=== PATIENT | female | born 1950 | race Caucasian/White ===

== ENCOUNTER 2021-03-03 07:10 | Emergency (ER) | payer MEDICARE, SELFPAY ==
--- NOTE | ~2021-03-03 | XR_ITS ---
XR chest 2V 03/03/2021 07:35 Indication: Shortness of breath. Chest pain. Procedure: 2 view chest Comparison: No prior studies for comparison. Findings: Heart size normal. No focal air space disease, pulmonary edema, pleural effusion or suspect ed pneumothorax. There is left shoulder arthroplasty. There are cholecystectomy clips. Impression: 1: No acute cardiopulmonary disease. Reviewed, dictated and finalized at location A. Impression: 1: No acute cardiopulmonary disease.
[2021-03-03 07:04] VITALS: BP 162/75; PULSE 77; RESP 18; TEMP 36.1; O2SAT 96
--- NOTE | 2021-03-03 07:11 | ECG_ITS ---
Measurements Intervals [place] Rate: 71 P: -7 MS: 149 QRS: 11 QRSD: 94 T: 69 QT: 404 QTc: 439 Interpretive Statements SINUS RHYTHM BORDERLINE ST-T WAVE ABNORMALITY- ANT/HIGH LAT LEADS BASELINE ARTIFACT- I, II, III, AVR, AVF, V3-V6 BORDERLINE ECG Electronically Signed On 03-03-2021 8:04:46 CDT by Demetrio Smith D.O.
[2021-03-03 07:12] VITALS: PULSE 75
[2021-03-03 07:34] LABS: Basophils Absolute Auto 0.1 K/mm3 (0.0-0.1); Basophils Percent Auto 0.7 % (0.2-1.2); Eosinophils Absolute Auto 0.2 K/mm3 (0-0.3); Eosinophils Percent Auto 3.3 % (0-4.4); Hematocrit 43.8 % (37.0-47.0); Hemoglobin 14.7 g/dL (12.0-15.0); Immature Granulocyte Absolute 0.02 K/mm3 (0.00-0.031); Immature Granulocyte Percent A 0.3 % (0-0.5); Lymphocytes Percent Auto 20.1 % (18.3-44.2); Mean Corpuscular HGB Conc 33.6 g/dl (32-36); Mean Corpuscular Hemoglobin 32.8 pg (26-34); Mean Corpuscular Volume 97.8 fl (80-100); Mean Platelet Volume 9.6 fl (7.4-10.4); Monocytes Absolute Auto 0.8 K/mm3 (0.1-0.6); Monocytes Percent Auto 11.3 % (2.6-8.5); Neutrophils Absolute Auto 4.5 K/mm3 (1.3-6.7); Neutrophils Percent Auto 64.3 % (45.5-73.1); Platelet Count Result 210 k/mm3 (150-375); Red Blood Count 4.48 M/mm3 (4.2-5.4); Red Cell Distribution Width 12.3 % (11.5-14.5)
[2021-03-03 07:43] LABS: Anion Gap 11 mmol/L (8-16); Blood Urea Nitrogen 13 mg/dL (7-17); Calcium 9.1 mg/dL (8.4-10.2); Carbon Dioxide 22 mmol/L (22-30); Chloride 103 mmol/L (98-107); Estimated CRCL calculation 36 ml/min; Estimated Glomerular Filt Rate 44; Glucose 109 mg/dL (65-110); Potassium 4.1 mmol/L (3.4-5.0); Sodium 136 mmol/L (137-145)
[2021-03-03 07:44] LABS: INR 0.9; Partial Thromboplastin Time 28.2 SECONDS (22.3-36.8); Prothrombin Time 12.4 Seconds (11.1-14.7)
--- NOTE | 2021-03-03 07:44 | ED.CHESTPAIN ---
HPI - Chest Pain General Chief Complaint: Chest Pain Stated Complaint: CP Source: patient and EMS Mode of arrival: EMS Limitations: no limitations History of Present Illness HPI narrative: Patient is a 63 yo female with a history of hyperlipidemia, hypothyroidism, hypertension, acid reflux, who presents for evaluation of neck pain with radiation into her chest. Patient states this dull, aching pain awaken her overnight. She feels on the left side of her neck with radiation to her chest. No radiation to the back or shoulders. No associated shortness of breath. Pain is minimal in nature currently, rated 1/10 in severity. No ripping or tearing sensation to the flank. No associated diaphoresis, nausea or vomiting. Patient initially was seen at the fire department was referred to this facility for further evaluation based on her symptoms. Patient does not smoke. Patient denies recent stress test. Per chart review, she does have a history of cardiac catheterization in the last 5 years. Patient is vaccinated for Covid. No history of Covid infection. No recent long car or air travel. Denies fever, chills, loss of sense of taste or smell. She does report a feeling as if she has some phlegm in her throat. Denies any difficulty breathing. Related Data Allergies Allergy/AdvReac Type Severity Reaction Status Date / Time No Known Allergies Allergy Unverified 05/04/16 13:13 Review of Systems Review of Systems: CONSTITUTIONAL: Denies fever, chills, or sweats. EYES: Denies visual changes, redness, or discharge. ENT: Denies rhinorrhea, congestion, sore throat, or otalgia. CARDIOVASCULAR: Reports mild chest pressure, denies palpitations or edema RESPIRATORY: Denies cough or dyspnea. GASTROINTESTINAL: Denies abdominal pain, nausea, vomiting, or diarrhea. GENITOURINARY: Denies dysuria or hematuria. SKIN: Denies rash or itching. MUSCULOSKELETAL: Denies back pain, joint pain, or myalgia. NEUROLOGIC: Denies headache, numbness, or weakness. [facility] Social History Social History Smoking status: Former smoker Alcohol intake: never Exam Narrative: GENERAL: Awake, alert, conversant HEAD: Normocephalic, atraumatic. EYES: PERRLA and EOMI. ENT: Nares clear, no rhinorrhea or epistaxis. Mucous membranes moist. Oropharynx is clear NECK: Supple. No cervical lymphadenopathy. CHEST: No respiratory distress, breathing even and non labored, mild chest wall tenderness on exam HEART: Regular rate, sinus rhythm ABDOMEN:Non distended, non tender EXTREMITIES: Normal range of motion. No edema. SKIN: Warm, dry, no rash. NEURO:No focal deficits. Alert and oriented x3 Course Vital Signs Vital signs: Vital Signs Temperature 36.1 C L 03/03/21 07:04 Pulse Rate 77 03/03/21 07:04 Respiratory Rate 18 03/03/21 07:04 Blood Pressure 162/75 H 03/03/21 07:04 Pulse Oximetry 96 03/03/21 07:04 Temperature 36.1 C L 03/03/21 07:04 Pulse Rate 75 03/03/21 07:12 Respiratory Rate 18 03/03/21 07:04 Blood Pressure 162/75 H 03/03/21 07:04 Pulse Oximetry 96 03/03/21 07:04 MDM - Chest Pain Differential Diagnosis Differential diagnosis: Likely stable angina, unstable angina pectoris, atypical chest pain, st elevation myocardial infarction, costochondritis and chest pain Medical Records Data Attestation: I reviewed the patient's medical records. Lab Data Attestation: I reviewed the patient's lab results. Result diagrams: 03/03/21 07:23 03/03/21 07:23 Labs: Lab Results 03/03/21 03/03/21 03/03/21 Range/Units 07:23 07:23 07:23 WBC Pending RBC Pending Hgb Pending Hct Pending MCV Pending MCH Pending MCHC Pending RDW Pending Plt Count Pending MPV Pending Immature Gran % (Auto) Pending Neut % (Auto) Pending Lymph % (Auto) Pending [place] % (Auto) Pending Eos % (Auto) Pending
[2021-03-03 07:55] LABS: Troponin I < 0.012 ng/mL (0.000-0.034)
[2021-03-03 09:39] VITALS: BP 133/67; PULSE 65; RESP 19; O2SAT 94
[2021-03-03 10:53] LABS: Troponin I < 0.012 ng/mL (0.000-0.034)
== END 2021-03-03 12:21 | disposition home or self-care (01) ==
PROVIDERS: Emergency Provider Emergency Medicine; PCP Nurse Practitioner Adult Health
DX: R07.89 Other chest pain (principal); E78.5 Hyperlipidemia, unspecified; E03.9 Hypothyroidism, unspecified; I10 Essential (primary) hypertension; Z87.891 Personal history of nicotine dependence; R94.31 Abnormal electrocardiogram [ECG] [EKG]
CPT/HCPCS: 36415; 71046; 80048; 84484; 85025; 85610; 85730; 93005; 99284

== ENCOUNTER → 2021-03-10 02:55 | Outpatient (CLI) | payer MEDICARE, SELFPAY ==
[2021-03-10 20:01] LABS: SARS-CoV-2 RNA PCR Negative
== END ==
PROVIDERS: PCP Nurse Practitioner Adult Health; Visit Provider Nurse Practitioner Adult Health
DX: R51.9 Headache, unspecified (principal); Z20.822 Contact with and (suspected) exposure to COVID-19
CPT/HCPCS: C9803; U0003; U0005

== ENCOUNTER 2021-03-24 15:06 | Inpatient (IN) | payer MEDICARE, SELFPAY ==
[2021-03-24] VITALS (20 sets, daily range): BP systolic 102–136; BP diastolic 61–91; PULSE 86–98; RESP 17–33; TEMP 36.4–37.4; O2SAT 94–100; BMI 26.8
--- NOTE | ~2021-03-24 | XR_ITS ---
EXAMINATION: XR chest 1V portable DATE: 03/28/2021 05:57 INDICATION: Pericardial effusion TECHNIQUE: frontal view of the chest was obtained. COMPARISON: Chest radiograph and CT dated 03/24/2021 FINDINGS: Persistent elevation of the left hemidiaphragm. Interval improvement in mild opacities in the left lo wer lung zone. Opacities in the right lower lung zone have resolved. No pneumothorax or definitive pl eural effusion. Borderline cardiac silhouette which appears slightly decreased in size since prior st udy. Reverse left total shoulder arthroplasty. IMPRESSION: 1. Resolution of prior right-sided and decrease in left-sided basilar opacities which could represent improving pulmonary edema, atelectasis or pneumonia. 2. Interval improvement in prior enlargement of the cardiac silhouette which could represent decrease in a moderate-sized pericardial effusion as evident on prior CT. Reviewed, dictated and finalized at location A. IMPRESSION: 1. Resolution of prior right-sided and decrease in left-sided basilar opacities which could represent improving pulmonary edema, atelectasis or pneumonia. 2. Interval improvement in prior enlargement of the cardiac silhouette which co uld represent decrease in a moderate-sized pericardial effusion as evident on p rior CT.
--- NOTE | ~2021-03-24 | CT_ITS ---
EXAMINATION: CTA chest PE protocol DATE: 03/24/2021 20:54 CDT INDICATION: Chest pain worsening when laying down. TECHNIQUE: Computed tomographic angiography (CTA) of the chest was performed with 100 mL Omnipaque-35 0 intravenous contrast. The dose-length product was 380.03 mGy-cm. Maximum intensity projection 3D-re constructions of the aorta and other arteries were constructed by the technologist on a separate work station. Automated exposure control and iterative reconstruction technique were employed. COMPARISON: Chest dated 03/24/2020. FINDINGS: Study technically adequate without evidence for pulmonary embolism. Evaluation of lower lob e segmental and subsegmental pulmonary arteries limited by motion. Moderate pericardial effusion. Trace left pleural effusion. Predominantly bilateral lower lobe airspa ce disease, compatible with pneumonia. No thoracic lymphadenopathy. Small hiatal hernia. No evidence for aortic aneurysm or dissection. Status post cholecystectomy. No pneumothorax. No endobronchial les ions. IMPRESSION: 1. No evidence for pulmonary embolism. 2: Moderate pericardial effusion. 3: Bilateral lower lobe airspace disease, compatible with pneumonia. 4: Trace left pleural effusion. Reviewed, dictated and finalized at location A.
--- NOTE | ~2021-03-24 | XR_ITS ---
XR chest 1V portable 03/24/2021 15:40 Indication: Chest pain and dyspnea. Procedure: AP portable chest Comparison: 03/03/2021 Findings: Cardiomegaly. Bibasilar airspace disease, consistent with pneumonia. No significant effusio n or pneumothorax. There is a left shoulder arthroplasty in expected position. No acute osseous abnor mality. Impression: 1: Bilateral perihilar and basilar airspace disease, compatible with pneumonia. Reviewed, dictated and finalized at location A. Impression: 1: Bilateral perihilar and basilar airspace disease, compatible with pneumonia.
--- NOTE | ~2021-03-24 | NM_ITS ---
NM pulmonary perfusion INDICATION: Shortness of breath. Elevated d-dimer. TECHNIQUE: 3.3 mCi Tc 99m MAA was injected intravenously for perfusion images. Multiple images were then acquired. COMPARISON: Chest x-ray dated 03/24/2021 FINDINGS: The comparison chest radiograph demonstrates bibasilar airspace disease. Small perfusion de fects are identified in the lower lobes bilaterally. IMPRESSION: 1: Small bilateral perfusion defects in the lower lobes. Reviewed, dictated and finalized at location A.
--- NOTE | 2021-03-24 15:16 | ECG_ITS ---
Measurements Intervals [place] Rate: 86 P: -9 MO: 146 QRS: -9 QRSD: 82 T: 75 QT: 349 QTc: 418 Interpretive Statements SINUS RHYTHM LOW QRS VOLTAGE IN LIMB LEADS BORDERLINE T WAVE ABNORMALITY- ANTTEROLAT/HIGH LAT LEADS BASELINE ARTIFACT- I, III, AVL, AVF, V1-V4 BORDERLINE ECG Electronically Signed On 03-24-2021 15:55:45 CDT by Demetrio Smith D.O.
[2021-03-24] MEDS: ASPIRIN 81 MG CHEWABLE TABLET 324 MG PO (15:34)
[2021-03-24 15:47] LABS: Basophils Percent Auto 0.1 % (0.2-1.2); Eosinophils Percent Auto 0.1 % (0-4.4); Hematocrit 41.9 % (37.0-47.0); Immature Granulocyte Absolute 0.06 K/mm3 (0.00-0.031); Immature Granulocyte Percent A 0.4 % (0-0.5); Lymphocytes Absolute Auto 0.86 K/mm3 (0.9-3.2); Lymphocytes Percent Auto 6.4 % (18.3-44.2); Mean Corpuscular HGB Conc 33.4 g/dl (32-36); Mean Corpuscular Hemoglobin 32.8 pg (26-34); Mean Corpuscular Volume 98.1 fl (80-100); Mean Platelet Volume 9.6 fl (7.4-10.4); Monocytes Absolute Auto 1.1 K/mm3 (0.1-0.6); Monocytes Percent Auto 8.1 % (2.6-8.5); Neutrophils Absolute Auto 11.4 K/mm3 (1.3-6.7); Neutrophils Percent Auto 84.9 % (45.5-73.1); Platelet Count Result 291 k/mm3 (150-375); Red Blood Count 4.27 M/mm3 (4.2-5.4); Red Cell Distribution Width 12.4 % (11.5-14.5); White Blood Count 13.4 K/mm3 (4.5-10.0)
[2021-03-24 15:58] LABS: INR 1.1; Partial Thromboplastin Time 30.7 SECONDS (22.3-36.8); Prothrombin Time 13.9 Seconds (11.1-14.7)
[2021-03-24 16:00] LABS: Anion Gap 10 mmol/L (8-16); Blood Urea Nitrogen 14 mg/dL (7-17); Calcium 8.9 mg/dL (8.4-10.2); Carbon Dioxide 22 mmol/L (22-30); Chloride 102 mmol/L (98-107); Estimated CRCL calculation 36 ml/min; Estimated Glomerular Filt Rate 44; Glucose 170 mg/dL (65-110); Potassium 4.3 mmol/L (3.4-5.0); Sodium 134 mmol/L (137-145)
[2021-03-24 16:12] LABS: Troponin I < 0.012 ng/mL (0.000-0.034)
[2021-03-24 16:27] LABS: D Dimer 1.59 ug/mL (<0.48)
[2021-03-24 18:59] LABS: Troponin I < 0.012 ng/mL (0.000-0.034)
--- NOTE | 2021-03-24 19:22 | ED.CHESTPAIN ---
HPI - Chest Pain General Chief Complaint: Chest Pain Stated Complaint: CP off and on x 1month Time Seen by Provider: 03/24/21 15:11 Source: patient Mode of arrival: ambulatory Limitations: no limitations History of Present Illness HPI narrative: Patient presents with chief complaint of sharp left-sided chest pain radiating to her left side of her neck and shoulder that have been intermittent over the past month. Patient states that she has had other work-ups for the chest pain but her results come back normal. 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 Patient states that last night the pain returned and she also noticed that the pain increased with breathing especially inspiration. Patient reports being tested for Covid. March 08 but the results were negative. Related Data Allergies Allergy/AdvReac Type Severity Reaction Status Date / Time No Known Allergies Allergy Unverified 05/04/16 13:13 Review of Systems Review of Systems: CONSTITUTIONAL: Denies fever, chills, or sweats. EYES: Denies visual changes, redness, or discharge. ENT: Denies rhinorrhea, congestion, sore throat, or otalgia. CARDIOVASCULAR: Reports left-sided chest pain denies palpitations, or edema. RESPIRATORY: Denies cough or dyspnea. GASTROINTESTINAL: Denies abdominal pain, nausea, vomiting, or diarrhea. GENITOURINARY: Denies dysuria or hematuria. SKIN: Denies rash or itching. MUSCULOSKELETAL: Denies back pain, joint pain, or myalgia. NEUROLOGIC: Denies headache, numbness, dizziness, or weakness. PSYCHIATRIC: Denies anxiety or depression. [facility] Social History Social History Smoking status: Former smoker Alcohol intake: never Gender identity (if verbalized by the patient): Female Exam Narrative: GENERAL: Well-appearing, well-nourished, and in no acute distress. HEAD: Normocephalic, atraumatic. EYES: PERRLA and EOMI. ENT: Nares clear, no rhinorrhea or epistaxis. Mucous membranes moist. Oropharynx without tonsillar hypertrophy exudate or other lesions. Bilateral TMs pearly martinez nonbulging NECK: Supple. No adenopathy or masses. Range of motion intact. CHEST: Clear to auscultation. No respiratory distress. No wheezes rales or rhonchi HEART: Regular rate and rhythm. ABDOMEN: Soft, nontender, nondistended, normal active bowel sounds. EXTREMITIES: Normal range of motion. No edema to the lower extremities. SKIN: Warm, dry, no rash. NEURO: No focal deficits. Alert and oriented x3. PSYCH: Normal mood and affect. Course Vital Signs Vital signs: Vital Signs Temperature 97.6 F 03/24/21 15:14 Pulse Rate 86 03/24/21 15:14 Respiratory Rate 24 H 03/24/21 15:14 Blood Pressure 136/84 03/24/21 15:14 Pulse Oximetry 97 03/24/21 15:14 Temperature 97.6 F 03/24/21 15:14 Pulse Rate 90 03/24/21 21:18 Respiratory Rate 19 03/24/21 21:15 Blood Pressure 112/61 03/24/21 21:15 Pulse Oximetry 94 03/24/21 21:15 MDM - Chest Pain MDM Narrative Medical decision making narrative: Patient is not hypoxic. Patient is not tachycardic. Patient's blood pressure is stable. Patient having questionable Covid symptoms Patient which she declined because she does not want her daughter staff to leave the room. Patient's VQ scan showed decreased perfusion at the bases bilaterally. This does not rule out a PE so CT PE was performed which show moderately enlarged pericardia. Patient denies a history of known heart failure/cardiomegaly. Patient will be admitted and is accepted for admission [facility] with telemetry by Dr. Gordon. Patient will have echo in the morning. Patient now agrees to Covid testing. Differential Diagnosis Differential diagnosis: Likely fracture of rib, pneumothorax, stable angina, unstable angina pectoris, atypical chest pain, st elevation myocardial infarction, costochondritis, chest pain and biliary colic Lab Data Result diagrams:
--- NOTE | 2021-03-24 20:17 | PC.NURSE ---
Initial contact with patient. Pt resting on stretcher, talking on phone. VSS. Daughter at bedside states that she wants the patient tested for COVID because she has been sick for the past 3 weeks, and is wondering if we test everyone . Explained that the tests are done at the discretion of the physician and with presented symptoms. Pt given morphine for c/o upper chest and upper back pain.
[2021-03-24] MEDS: MORPHINE SULFATE (*CRX) 2 MG/ML INJ IV PUSH (20:21)
--- NOTE | 2021-03-24 21:15 | PC.NURSE ---
Pt resting with eyes closed on stretcher. States her pain has not improved at all from the morphine. REUBEN Rudolph, made aware.
--- NOTE | 2021-03-24 21:45 | PC.NURSE ---
Daughter made aware that rapid covid swab is ordered and that she will have to leave the patient. States wants to delay the test at this time so that she can visit a little longer with her mother.
[2021-03-24 21:47] LABS: NT Pro B Type Natriuretic Pept 766 pg/mL (5-100)
[2021-03-24 21:50] LABS: Troponin I < 0.012 ng/mL (0.000-0.034)
--- NOTE | 2021-03-24 22:22 | PC.NURSE ---
Rapid covid swab collected and sent to lab. Daughter exits building per visitor policy. Awaiting room assignment. Pt denies needs at present.
[2021-03-24 22:48] LABS: EDCOVIDSCREEN Negative (Negative)
--- NOTE | 2021-03-24 22:50 | PC.NURSE ---
Bed assignment received. SBAR faxed and tubed.
--- NOTE | 2021-03-24 22:55 | PC.NURSE ---
Pt ambulatory to bathroom. Note increased shortness of breath after ambulating. Pt states continues to have midsternal and upper back pain. REUBEN Rudolph, made aware. VSS.
[2021-03-24] MEDS: MORPHINE SULFATE (*CRX) 2 MG/ML INJ (23:03)
--- NOTE | 2021-03-24 23:08 | PC.NURSE ---
Attempt to call report to floor, no answer.
--- NOTE | 2021-03-24 23:42 | PM.IMHP ---
H&P: HPI History of Present Illness Date/Time: 03/24/21 23:42 Chief Complaint: chest pain Narrative: Patient presents to the ED with recurrent chest pains since past month. c/o recently presented on March 03, 2021 with bilateral jaw pain that follows down to her chest sharp in quality and radiates to her back in between her scapula. She states the pain gets worse whenever she takes deep breaths. She came to the ED for evaluation and workup was negative with negative chest x-ray negative troponin and EKG. She was sent home following which she followed up with her primary care doctor. She had 2 another episodes since then after the 2nd episode she was given a steroid pack and amoxicillin which helped her pain. After she finished a course she had another episode which was not so bad and resolve on its own. This pain which started a day or 2 ago and has been more severe and hence came to the ER for evaluation. She describes the pain is is same way as she has been experiencing over the past month now. In the this time she is noted to have elevated WBC count and chest x-ray with bilateral lower pneumonia. She was swabbed again for COVID which came back negative which shows also no Forrest negative last month. Without pleuritic nature of chest pain a D-dimer was checked which was elevated and hence a V/Q scan was done which was not conclusive and see got a CTA done which showed no PE however was noted to have moderate pericardial effusion along with trace left-sided pleural effusion. With these findings he was admitted for further evaluation and management. She denies having any fever however she did had an episode of sweating at 1 time and chills but no recorded elevated temperature per patient. She also denies having any cough or runny nose or any upper respiratory infection symptoms. She also denies having exposed to COVID and has also been vaccinated in the past. Review of Systems Review of Systems: - CONSTITUTIONAL: Denies weight loss, fever and chills. - HEENT: Denies changes in vision and hearing - RESPIRATORY: reports SOB and denies cough. - CV: Denies palpitations and reports CP. - GI: Denies abdominal pain, nausea, vomiting and diarrhea. - : Denies dysuria and urinary frequency. - MSK: Denies myalgia and joint pain. - SKIN: Denies rash and pruritus. - NEUROLOGICAL: Denies headache and syncope. - PSYCHIATRIC: Denies recent changes in mood. Denies anxiety and depression. All systems reviewed & are unremarkable except as noted in HPI and below Constitutional: Constitutional: Reports fatigue and Reports weakness Neurologic: Reports weakness Endocrine: Endocrine: Reports fatigue PMFSH Social History Social History Smoking status: Former smoker Tobacco type: cigarettes Alcohol intake: never Substance use: never Gender identity (if verbalized by the patient): Female Spiritual care concerns: No Meds Home Medications and Allergies Home Medications Medication Instructions Recorded Confirmed Type aspirin [Adult Low Dose Aspirin] 81 mg PO DAILY 03/25/21 03/25/21 History atorvastatin 20 mg PO DAILY 03/25/21 03/25/21 History bupropion HCl 200 mg PO DAILY 03/25/21 03/25/21 History fluoxetine 40 mg PO DAILY 03/25/21 03/25/21 History levothyroxine 125 mcg PO DAILY 03/25/21 03/25/21 History losartan 50 mg PO DAILY 03/25/21 03/25/21 History metoprolol succinate 50 mg PO DAILY 03/25/21 03/25/21 History Allergies Allergy/AdvReac Type Severity Reaction Status Date / Time No Known Allergies Allergy Unverified 05/04/16 13:13 Vital Signs Vital Signs - 24 hr 03/24/21 15:14 03/24/21 17:28 03/24/21 20:06 Temperature 97.6 F Pulse Rate 86 88 89 Respiratory Rate 24 H 18 19 Blood Pressure 136/84 127/81 Pulse Oximetry 97 100 95 03/24/21 20:18 03/24/21 20:30 03/24/21 20:47 Temperature Pulse Rate 91 93 91 Respiratory Rate 25 H 24
[2021-03-25] VITALS (9 sets, daily range): BP systolic 93–105; BP diastolic 53–58; PULSE 71–99; RESP 16–20; TEMP 36.4–36.8; O2SAT 90–91; BMI 26.8
[2021-03-25] MEDS: COLCHICINE 0.6 MG TABLET PO ×3 (01:46→20:26)
[2021-03-25] MEDS: INDOMETHACIN 25 MG CAPSULE PO ×4 (01:46→17:13)
[2021-03-25] MEDS: LEVOTHYROXINE SODIUM 125 MCG TABLET PO (05:21)
[2021-03-25 07:24] LABS: HIV 1/2 Ab P24 Ag Result Negative (Negative)
[2021-03-25 07:40] LABS: CRP 33.7 mg/dL (<1.0)
[2021-03-25 07:45] LABS: Hepatitis B Surface Antigen Negative (Negative)
[2021-03-25 07:50] LABS: HAV RESULT Negative (Negative); Hepatitis B Core IgM Result Negative (Negative)
[2021-03-25 08:02] LABS: Hepatitis C Virus Antibody Negative (Negative)
[2021-03-25 08:19] LABS: Erythrocyte Sedimentation Rate > 140 mm/hr (0-20)
[2021-03-25 08:28] LABS: SARS-CoV-2 IgG Reactive (NonReactive)
[2021-03-25] MEDS: METOPROLOL SUCCINATE EXT REL 50 MG TABCR PO (09:33)
[2021-03-25] MEDS: LOSARTAN POTASSIUM 50 MG TABLET PO (09:33)
[2021-03-25] MEDS: ASPIRIN 81 MG ENTERIC TABLET PO (09:34)
[2021-03-25] MEDS: ATORVASTATIN 20 MG TABLET PO (09:34)
[2021-03-25] MEDS: FLUoxetine HCL 20 MG CAPSULE 40 MG PO (09:34)
--- NOTE | 2021-03-25 10:45 | PM.IMPN ---
Progress Note: A&P Assessment and Plan (1) Atypical chest pain: Code(s): R07.89 - Other chest pain Status: Acute Assessment and Plan: Pt has negative troponins , CT chest shows moderate pericardial effusion and bilateral pneumonia. Pt is on IV rocephin and IV zithromax, [place] [id number] cont to monitor. (2) Acute pericardial effusion: Code(s): I30.9 - Acute pericarditis, unspecified Status: Acute Assessment and Plan: ESR is high colchicine is ordered indomethacin is ordered, CT shows moderate pericardial effusion, cardiology consulted. (3) Hyperlipidemia: Code(s): E78.5 - Hyperlipidemia, unspecified Status: Acute Assessment and Plan: Chronic history (4) Hypertension: Code(s): I10 - Essential (primary) hypertension Status: Acute Assessment and Plan: Bp stable is the hospital continue to monitor (5) Coronary artery disease: Code(s): I25.10 - Atherosclerotic heart disease of [place] coronary artery without angina pectoris Status: Acute Assessment and Plan: Chronic history of CAD Subjective Date/time seen: 03/25/21 10:45 Interval history: &1 year old presented with left sided chest pain radiating to her shoulder. Describes sharp pains and positional chest pains. So far troponin is negative. EKG with nonspecific ST-T changes no dynamic change compared to previous EKG. She does have history of coronary artery disease status, CXR shows LL Pneumonia and CT chest shows - moderate pericardial effusion. Pt complains of chest pain sharp in nature on both sides of her back, and mild SOB. Review of Systems Review of Systems: All systems reviewed & are unremarkable except as noted in HPI and below ROS unobtainable: Yes other (Chest pains sharp in nature and positional, sob mild ) Cardiovascular: Cardiovascular: Reports chest pain Respiratory: Respiratory: Reports chest congestion and Reports dyspnea (mild ) Gastrointestinal: Gastrointestinal: Denies no additional gastrointestinal complaints Neurologic: Reports system reviewed and no additional complaints, except as documented Psychiatric: Psychiatric: Denies no additional psychiatric complaints Exam Const: General: ill appearing and other (Mild distress with chest pains ) Nutritional Appearance: overweight Orientation/consciousness: oriented to person HENMT: Head: normal to inspection Resp: Effort & Inspection: no respiratory distress Auscultation: rhonchi (BIlateral ) and wheezes (Bilateral ) Cardio: Rate: regular rate Rhythm: regular rhythm GI: Inspection: normal to inspection GI Palp: No abdominal tenderness, No Guarding due to palpation present (GI) and No Hepatomegaly present Auscultation: normal bowel sounds Neuro: General: oriented to person Objective Data Vital Signs Vital Signs: Vital Signs - 24 hr 03/24/21 15:14 03/24/21 17:28 03/24/21 20:06 Temperature 36.4 C Pulse Rate 86 88 89 Respiratory Rate 24 H 18 19 Blood Pressure 136/84 127/81 Pulse Oximetry 97 100 95 03/24/21 20:18 03/24/21 20:30 03/24/21 20:47 Temperature Pulse Rate 91 93 91 Respiratory Rate 25 H 24 H 18 Blood Pressure 114/71 108/69 107/69 Pulse Oximetry 96 95 95 03/24/21 21:00 03/24/21 21:15 03/24/21 21:18 Temperature Pulse Rate 89 91 90 Respiratory Rate 24 H 19 Blood Pressure 102/62 112/61 Pulse Oximetry 95 94 03/24/21 21:30 03/24/21 21:31 03/24/21 21:45 Temperature Pulse Rate 98 96 Respiratory Rate 20 17 23 H Blood Pressure 111/69 113/91 H Pulse Oximetry 94 96 95 03/24/21 21:46 03/24/21 22:00 03/24/21 22:15 Temperature Pulse Rate 95 96 95 Respiratory Rate 21 H 19 18 Blood Pressure 111/64 109/73 Pulse Oximetry 95 94 94 03/24/21 22:16 03/24/21 22:30 03/24/21 22:53 Temperature Pulse Rate 95 92 98 Respiratory Rate 19 25 H 33 H Blood Pressure 111/71 132/68 Pulse Oximetry 94 94 98 03/24/21 23:34 03/24/21 23:53
[2021-03-25] MEDS: MORPHINE SULFATE (*CRX) 4 MG/ML INJ 2 MG IV PUSH (10:51)
[2021-03-25] MEDS: buPROPion HCL SR (12HR) 100 MG TABCR 200 MG PO (10:53)
--- NOTE | 2021-03-25 14:24 | PM.CNCAR ---
Assessment and Plan Assessment and plan (1) Acute pericardial effusion: Code(s): I30.9 - Acute pericarditis, unspecified Status: Acute Assessment and Plan: Moderate sized pericardial effusion noted on CT today. Follow up echocardiogram showed complex pericardial effusion as well as a thick pericardium. Patient is not exhibiting any hemodynamic compromise as a result of this effusion. Furthermore, it is a favorable fluid collection for pericardial tap. Start prednisone 40mg daily x 3 days taper prednisone to 20mg daily Patient to follow up with her button tufter as OP for remainder of steroid taper (2) Atypical chest pain: Code(s): R07.89 - Other chest pain Status: Acute Assessment and Plan: She has been experiencing atypical sounding chest pain for about a month and half. EKG does not have ST or T changes concerning for ischemia. Serial troponins are negative. Chest pain likely related to her pericarditis. Monitor for improvement of pain with treatment of her pericarditis. (3) Coronary artery disease: Code(s): I25.10 - Atherosclerotic heart disease of [place] coronary artery without angina pectoris Status: Acute Assessment and Plan: History of coronary artery disease with a prior stent placed in 2008 at [facility]. She has had some chest discomfort with exertion that she says has been increasing gradually over the past couple of years. Would not be unreasonable to undergo a stress test as an outpatient with her button tufter. No indication for ischemic workup during this admission as she does not have any evidence of ischemia by EKG or cardiac enzymes. Her chest pain is likely related to her pericarditis. History of Present Illness History of Present Illness Consult date/time: 03/25/21 14:24 Requesting physician: Rufus Gordon MD Consult reason: chest pain and Other (Pericardial effusion) Reason For Visit: Atypical Chest Pain w/pericardial effusion Narrative: This is a 70-year-old female I am seeing at the request of Dr. Gordon For the reason of chest pain as well as pericardial effusion noted on CT scan. This is a patient with a past medical history of coronary artery disease with a stent placed in 2008 at [facility], hypertension, hyperlipidemia, thyroid disease who has a complaint of intermittent chest pain that is been ongoing for about a month and a half. She says that she presented to the hospital at the end of February for the same reason at which time a cardiac workup was performed including EKG and cardiac enzymes neither of which were indicative of myocardial ischemia. She also tells me that she was prescribed 1 week of steroids and antibiotics for this same complaint which improved her symptoms but she noticed that immediately after stopping the antibiotic her chest pain returned. She describes her pain as sharp and rates it at an intensity of 10. The pain will sometimes originate in her jaw, travel down her neck, then to her chest. Aside from the steroids and antibiotics she denies any alleviating factors. She says that the pain will arise and last for about 1 day, subside for 1-2 days then return. She says that when she takes a deep breath in the pain is worse. She has noticed that she has to take breaks when mowing the grass due to chest discomfort. She also says that she has noticed some chest discomfort while walking. She has noticed this getting worse over the span of several years. she denies any nausea, vomiting, shortness of breath, orthopnea. She follows with a button tufter Dr. Gomez at [place]. Review of Systems Review of Systems: All systems reviewed & are unremarkable except as noted in HPI and below Constitutional: Constitutional: Denies fatigue, Denies lethargy and Denies weakness Eyes: Eyes: Denies change in vision ENT: Reports Normal hearing present Cardiovascular: Cardiovascular: Reports chest pain, Denies diaph
[2021-03-25 15:14] LABS: Free T4 Free Thyroxine Reflex 1.47 ng/dL (0.78-2.19)
[2021-03-25] MEDS: predniSONE 20 MG TABLET 40 MG PO (17:18)
[2021-03-25 18:44] LABS: Total Triiodothyronine (T3) 0.64 NG/ML (0.97-1.69)
--- NOTE | 2021-03-25 21:48 | ECHO_ITS ---
Patient Info Name: Anu Carranza Age: 70 years : 1950 Gender: Female Ht: 63 in Wt: 160 lbs BSA: 1.82 m2 HR: 78 bpm BP: 105 / 57 mmHg Heart Rhythm: Sinus Rhythm Technical Quality: Fair Exam Date: 03/25/2021 2:13 PM Exam Location: [facility] Patient Status: Inpatient Admit Date: 03/25/2021 Staff Ordering Physician: Jack Painting PA-C Dry Press Operator: Babs Holt RDCS Attending Provider: Rufus Gordon MD Referring Physician: Mert ANDERSON; Exam Type: CA echo doppler color flow Study Info Indications - PERICARDIAL EFFUSION Complete two-dimensional, color flow and Doppler transthoracic echocardiogram is performed. Summary 1. Complete two-dimensional, color flow and Doppler transthoracic echocardiogram is performed. 2. Left ventricular chamber dimension is normal. 3. Left ventricular systolic function is normal, estimated at 60-65%. 4. No significant valvular disease. 5. Complex pericardial effusion with small circumferential rim of fluid 1-1.3 cm in thickness. 6. The visceral pericardium is also very thick and complex in nature with soft tissue density. Left Ventricle Left ventricular chamber dimension is normal. Left ventricular systolic function is normal, estimated at 60-65%. The left ventricular diastolic function is normal. Right Ventricle Right ventricular chamber dimension is normal. Left Atria Left atrial chamber dimension is normal. Right Atria Right atrial chamber dimension is normal. Aortic Valve The aortic valve is trileaflet. There is mild aortic valve sclerosis. Pulmonic Valve The pulmonic valve is not well visualized. Mitral Valve The mitral valve has normal leaflets. Tricuspid Valve The tricuspid valve leaflets are normal. Pericardium/Pleural The pericardium appears thickened pericardium. There is small circumferential pericardial effusion. Aorta The aortic root size at the sinus of Valsalva is normal. Left Ventricular Outflow Tract Name Value Normal LVOT 2D LVOT Diameter 2.0 cm LVOT Doppler LVOT Peak Gradient 4 mmHg LVOT Mean Gradient 2 mmHg LVOT VTI 20 cm LVOT VTI/AV VTI Ratio 1.0 LVOT Stroke Volume 61 ml LVOT CO 4.7 l/min LVOT CI 2.6 l/min/m2 Pulmonic Valve Name Value Normal RVOT Doppler RVOT Peak Gradient 1 mmHg PV Doppler PV Peak Gradient 2 mmHg Mitral Valve Name Value Normal
[2021-03-26] VITALS (10 sets, daily range): BP systolic 107–123; BP diastolic 53–57; PULSE 63–75; RESP 18; TEMP 35.9–36.7; O2SAT 94–98
[2021-03-26] MEDS: MORPHINE SULFATE (*CRX) 4 MG/ML INJ 2 MG IV PUSH (02:55)
[2021-03-26] MEDS: LEVOTHYROXINE SODIUM 125 MCG TABLET PO (06:20)
[2021-03-26 07:06] LABS: Hematocrit 38.9 % (37.0-47.0); Mean Corpuscular HGB Conc 33.4 g/dl (32-36); Mean Corpuscular Hemoglobin 32.4 pg (26-34); Mean Platelet Volume 10.3 fl (7.4-10.4); Platelet Count Result 256 k/mm3 (150-375); Red Blood Count 4.01 M/mm3 (4.2-5.4); Red Cell Distribution Width 11.8 % (11.5-14.5); White Blood Count 11.4 K/mm3 (4.5-10.0)
[2021-03-26 07:12] LABS: Anion Gap 15 mmol/L (8-16); Blood Urea Nitrogen 17 mg/dL (7-17); Calcium 8.9 mg/dL (8.4-10.2); Carbon Dioxide 21 mmol/L (22-30); Chloride 102 mmol/L (98-107); Estimated CRCL calculation 30 ml/min; Estimated Glomerular Filt Rate 37; Glucose 124 mg/dL (65-110); Potassium 3.9 mmol/L (3.4-5.0); Sodium 138 mmol/L (137-145)
[2021-03-26] MEDS: INDOMETHACIN 25 MG CAPSULE PO ×3 (08:57→17:03)
[2021-03-26] MEDS: predniSONE 20 MG TABLET 40 MG PO (08:57)
[2021-03-26] MEDS: buPROPion HCL SR (12HR) 100 MG TABCR 200 MG PO (08:57)
[2021-03-26] MEDS: ATORVASTATIN 20 MG TABLET PO (08:57)
[2021-03-26] MEDS: METOPROLOL SUCCINATE EXT REL 50 MG TABCR PO (08:58)
[2021-03-26] MEDS: FLUoxetine HCL 20 MG CAPSULE 40 MG PO (08:58)
[2021-03-26] MEDS: ASPIRIN 81 MG ENTERIC TABLET PO (08:59)
[2021-03-26] MEDS: LOSARTAN POTASSIUM 50 MG TABLET PO (08:59)
[2021-03-26] MEDS: COLCHICINE 0.6 MG TABLET PO ×2 (08:59→20:41)
[2021-03-26] MEDS: ACETAMINOPHEN 325 MG TABLET PO (10:49)
--- NOTE | 2021-03-26 11:35 | PM.IMPN ---
Progress Note: A&P Assessment and Plan (1) Atypical chest pain: Code(s): R07.89 - Other chest pain Status: Acute Assessment and Plan: Pt has negative troponins , CT chest shows moderate pericardial effusion and bilateral pneumonia. Pt is on IV rocephin and IV zithromax, [place], [place] [id number] cont to monitor. (2) Acute pericardial effusion: Code(s): I30.9 - Acute pericarditis, unspecified Status: Acute Assessment and Plan: ESR is high colchicine is ordered indomethacin is ordered , pt seen by cardiology. (3) Hyperlipidemia: Code(s): E78.5 - Hyperlipidemia, unspecified Status: Acute Assessment and Plan: Chronic history (4) Hypertension: Code(s): I10 - Essential (primary) hypertension Status: Acute Assessment and Plan: Bp stable is the hospital continue to monitor (5) Coronary artery disease: Code(s): I25.10 - Atherosclerotic heart disease of [place] coronary artery without angina pectoris Status: Acute Assessment and Plan: Chronic history of CAD Subjective Date/time seen: 03/26/21 11:35 Interval history: Pt admitted with chest pain secondary to Pneumonia. Pt feeling better apart from some pain on her right arm secondary to IV infiltration. Review of Systems Review of Systems: All systems reviewed & are unremarkable except as noted in HPI and below Exam Const: General: comfortable and other Nutritional Appearance: overweight Orientation/consciousness: oriented to person HENMT: Head: normal to inspection Resp: Effort & Inspection: no respiratory distress Auscultation: rhonchi (BIlateral ) and wheezes (Bilateral ) Cardio: Rate: regular rate Rhythm: regular rhythm GI: Inspection: normal to inspection Auscultation: normal bowel sounds Neuro: General: oriented to person Objective Data Vital Signs Vital Signs: Vital Signs - 24 hr 03/25/21 12:00 03/25/21 14:00 03/25/21 16:00 Temperature 36.8 C Pulse Rate 80 78 84 Respiratory Rate 16 Blood Pressure 102/58 L Pulse Oximetry 91 03/25/21 20:00 03/25/21 20:54 03/26/21 00:00 Temperature 36.4 C L Pulse Rate 73 71 70 Respiratory Rate 18 18 Blood Pressure 93/53 L Pulse Oximetry 91 91 03/26/21 04:00 03/26/21 06:00 03/26/21 08:00 Temperature 35.9 C L Pulse Rate 69 72 70 Respiratory Rate 18 18 Blood Pressure 112/56 L Pulse Oximetry 98 98 03/26/21 08:58 Temperature Pulse Rate 70 Respiratory Rate Blood Pressure Pulse Oximetry Intake/Output Intake/Output: Intake & Output 03/23/21 03/24/21 03/25/21 03/26/21 23:59 23:59 23:59 23:59 Intake Total 1070 550 Output Total 100 500 Balance 970 50 Meds/Results Medications: Active Medications Generic Name Dose Route Start Last Admin Trade Name Freq PRN Reason Stop Dose Admin Acetaminophen 325 mg 03/26/21 10:29 03/26/21 10:49 Acetaminophen 325 Mg Tablet PO 325 mg Q4H PRN Administration Mild Pain (1-3) or Fever Aspirin 81 mg 03/25/21 09:00 03/26/21 08:59 Aspirin 81 Mg Enteric Tablet PO 81 mg QAM BRYANNA Administration Atorvastatin Calcium 20 mg 03/25/21 09:00 03/26/21 08:57 Atorvastatin 20 Mg Tablet PO 20 mg DAILY BRYANNA Administration Bupropion HCl 200 mg 03/25/21 09:00 03/26/21 08:57 Bupropion Hcl Sr (12hr) 100 Mg Tabcr PO 200 mg DAILY BRYANNA Administration Colchicine 0.6 mg 03/25/21 00:45 03/26/21 08:59 Colchicine 0.6 Mg Tablet PO 0.6 mg Q12HR BRYANNA Administration Fluoxetine HCl 40 mg 03/25/21 09:00 03/26/21 08:58 Fluoxetine Hcl 20 Mg Capsule PO 40 mg DAILY BRYANNA Administration Ceftriaxone Sodium/Dextrose 1 gm in 50 mls @ 100 mls/hr 03/25/21 01:00 03/26/21 01:40 Rocephin 1 Gm/D5w 50 Ml IVPB Infused Q24H BRYANNA Infusion Azithromycin 500 mg in 250 mls @ 250 mls/hr 03/25/21 01:00 03/26/21 02:20 Zithromax IVPB Infused Q24H BRYANNA Infusion Indomethacin 25 mg 03/25/21 00:45 0
[2021-03-27] VITALS (10 sets, daily range): BP systolic 100–133; BP diastolic 50–59; PULSE 60–73; RESP 18–20; TEMP 36–36.7; O2SAT 95–98
[2021-03-27] MEDS: LEVOTHYROXINE SODIUM 125 MCG TABLET PO (06:26)
[2021-03-27] MEDS: FLUoxetine HCL 20 MG CAPSULE 40 MG PO (08:37)
[2021-03-27] MEDS: buPROPion HCL SR (12HR) 100 MG TABCR 200 MG PO (08:37)
[2021-03-27] MEDS: predniSONE 20 MG TABLET 40 MG PO (08:37)
[2021-03-27] MEDS: INDOMETHACIN 25 MG CAPSULE PO ×3 (08:38→17:23)
[2021-03-27] MEDS: ATORVASTATIN 20 MG TABLET PO (08:38)
[2021-03-27] MEDS: ASPIRIN 81 MG ENTERIC TABLET PO (08:38)
[2021-03-27] MEDS: METOPROLOL SUCCINATE EXT REL 50 MG TABCR PO (08:38)
[2021-03-27] MEDS: LOSARTAN POTASSIUM 50 MG TABLET PO (08:38)
--- NOTE | 2021-03-27 11:00 | P.PNIM_ITS ---
Progress Note: A&P Assessment and Plan (1) Atypical chest pain: Code(s): R07.89 - Other chest pain Status: Acute Assessment and Plan: * troponins are negative * CT chest shows moderate pericardial effusion and bilateral pneumonia. * IV rocephin and IV zithromax * BC pending * [place] [id number] * trend labs * indomethacin and prednisone (2) Acute pericardial effusion: Code(s): I30.9 - Acute pericarditis, unspecified Status: Acute Assessment and Plan: * ESR is high * colchicine is ordered * indomethacin is ordered * cardiology consulted thank you for your help (3) Hyperlipidemia: Code(s): E78.5 - Hyperlipidemia, unspecified Status: Acute Assessment and Plan: * Chronic * Continue home atorvastatin 20mg PO daily (4) Hypertension: Code(s): I10 - Essential (primary) hypertension Status: Acute Assessment and Plan: * Bp stable 100/50 today * Continue metoprolol and losartan * Trend blood pressure (5) Coronary artery disease: Code(s): I25.10 - Atherosclerotic heart disease of [place] coronary artery without angina pectoris Status: Acute Assessment and Plan: * Chronic history of CAD * Continue asa 81mg PO daily (6) Pneumonia: Code(s): J18.9 - Pneumonia, unspecified organism Status: Acute Assessment and Plan: * Chest x-ray and CT chest also indicative of underlying pneumonia however no signs of respiratory infection evident. * Azithromycin and ceftriaxone * Covid negative * left trace pleural effusion * repeat chest xray tomorrow (7) Hypothyroid: Code(s): E03.9 - Hypothyroidism, unspecified Status: Acute Assessment and Plan: * TSH 4.230, T3 0.64, T4 1.47 * Continue home levothyroxine 125mcg Daily Time Spent With Patient Time with patient: 25 - 35 minutes Subjective Date/time seen: 03/27/21 11:00 Interval history: Patient is a 70 year old female here for chest pain. She did stated that she was feeling better today. She does not complain of any chest pain or shortness of breath. She did state that when she is off the azithromycin and prednisone that the pain comes back after about 2 days. She complains of a decreased appetite. She also stated that she feels weak and jittery when she attempts to walk, but she is able to get to the bathroom and can hold her own. She denies cough, congestion, fevers, sweats, chills, nausea, vomiting. She did admit to having a BM yesterday. She denies problems with urination. She did tell me that she see Dr. Dial at [facility] but would like to change to someone here that is closer for her. She will also need a chest xray tomorrow to see if the fluid is better. Review of Systems Review of Systems: All systems reviewed & are unremarkable except as noted in HPI and below Exam Const: General: cooperative, comfortable, no acute distress, well developed, alert and awake Nutritional Appearance: well nourished Orientation/consciousness: patient oriented x3 Limitations: no limitations HENMT: Head: normal to inspection Ears: hearing grossly normal bilaterally General nose exam: Normal external nose present Mouth: Yes Normal oral and palatal mucosa present, Yes lip normal and Yes tongue normal Teeth and gingiva: abnormal tooth and associated gi
--- NOTE | 2021-03-27 11:00 | PM.IMPN ---
Progress Note: A&P Assessment and Plan (1) Atypical chest pain: Code(s): R07.89 - Other chest pain Status: Acute Assessment and Plan: troponins are negative CT chest shows moderate pericardial effusion and bilateral pneumonia. IV rocephin and [place] [id number] trend labs indomethacin and prednisone (2) Acute pericardial effusion: Code(s): I30.9 - Acute pericarditis, unspecified Status: Acute Assessment and Plan: ESR is high colchicine is ordered indomethacin is ordered cardiology consulted thank you for your help (3) Hyperlipidemia: Code(s): E78.5 - Hyperlipidemia, unspecified Status: Acute Assessment and Plan: Chronic Continue home atorvastatin 20mg PO daily (4) Hypertension: Code(s): I10 - Essential (primary) hypertension Status: Acute Assessment and Plan: Bp stable 100/50 today Continue metoprolol and losartan Trend blood pressure (5) Coronary artery disease: Code(s): I25.10 - Atherosclerotic heart disease of [place] coronary artery without angina pectoris Status: Acute Assessment and Plan: Chronic history of CAD Continue asa 81mg PO daily (6) Pneumonia: Code(s): J18.9 - Pneumonia, unspecified organism Status: Acute Assessment and Plan: Chest x-ray and CT chest also indicative of underlying pneumonia however no signs of respiratory infection evident. Azithromycin and ceftriaxone Covid negative left trace pleural effusion repeat chest xray tomorrow (7) Hypothyroid: Code(s): E03.9 - Hypothyroidism, unspecified Status: Acute Assessment and Plan: TSH 4.230, T3 0.64, T4 1.47 Continue home levothyroxine 125mcg Daily Time Spent With Patient Time with patient: 25 - 35 minutes Subjective Date/time seen: 03/27/21 11:00 Interval history: Patient is a 70 year old female here for chest pain. She did stated that she was feeling better today. She does not complain of any chest pain or shortness of breath. She did state that when she is off the azithromycin and prednisone that the pain comes back after about 2 days. She complains of a decreased appetite. She also stated that she feels weak and jittery when she attempts to walk, but she is able to get to the bathroom and can hold her own. She denies cough, congestion, fevers, sweats, chills, nausea, vomiting. She did admit to having a BM yesterday. She denies problems with urination. She did tell me that she see Dr. Dial at [facility] but would like to change to someone here that is closer for her. She will also need a chest xray tomorrow to see if the fluid is better. Review of Systems Review of Systems: All systems reviewed & are unremarkable except as noted in HPI and below Exam Const: General: cooperative, comfortable, no acute distress, well developed, alert and awake Nutritional Appearance: well nourished Orientation/consciousness: patient oriented x3 Limitations: no limitations HENMT: Head: normal to inspection Ears: hearing grossly normal bilaterally General nose exam: Normal external nose present Mouth: Yes Normal oral and palatal mucosa present, Yes lip normal and Yes tongue normal Teeth and gingiva: abnormal tooth and associated gingiva and poor dentition Eyes: General: appearance normal, both eyes and all related structures Neck: Neck: normal visual inspection, full ROM, trachea midline and supple Chest: Chest palpation & inspection: normal inspection of the chest Resp: Effort & Inspection: normal respiratory effort and able to speak in complete sentences Auscultation: clear to auscultation bilaterally Cardio: Jugular venous distension: no JVD Rate: regular rate Rhythm: regular rhythm Heart sounds: Other heart sounds present (muffled heart sounds ) Peripheral pulses: Peripheral pulse
[2021-03-27] MEDS: COLCHICINE 0.6 MG TABLET PO ×2 (11:53→21:38)
[2021-03-28] VITALS: PULSE 64
[2021-03-28 04:00] VITALS: PULSE 67
[2021-03-28 06:00] VITALS: BP 109/51; PULSE 66; RESP 20; TEMP 36.6; O2SAT 97
[2021-03-28] MEDS: LEVOTHYROXINE SODIUM 125 MCG TABLET PO (06:53)
[2021-03-28 07:20] LABS: Basophils Percent Auto 0.1 % (0.2-1.2); Eosinophils Absolute Auto 0.1 K/mm3 (0-0.3); Eosinophils Percent Auto 0.5 % (0-4.4); Hematocrit 38.5 % (37.0-47.0); Immature Granulocyte Absolute 0.05 K/mm3 (0.00-0.031); Immature Granulocyte Percent A 0.5 % (0-0.5); Lymphocytes Absolute Auto 1.86 K/mm3 (0.9-3.2); Lymphocytes Percent Auto 19.4 % (18.3-44.2); Mean Corpuscular HGB Conc 33.8 g/dl (32-36); Mean Corpuscular Volume 97.7 fl (80-100); Mean Platelet Volume 9.7 fl (7.4-10.4); Monocytes Absolute Auto 0.8 K/mm3 (0.1-0.6); Monocytes Percent Auto 8.8 % (2.6-8.5); Neutrophils Absolute Auto 6.8 K/mm3 (1.3-6.7); Neutrophils Percent Auto 70.7 % (45.5-73.1); Platelet Count Result 339 k/mm3 (150-375); Red Blood Count 3.94 M/mm3 (4.2-5.4); Red Cell Distribution Width 12.3 % (11.5-14.5); White Blood Count 9.6 K/mm3 (4.5-10.0)
[2021-03-28 07:37] LABS: Alanine Aminotransferase 67 U/L (4-35); Albumin Level 3.6 g/dL (3.5-5.1); Alkaline Phosphatase 118 U/L (38-126); Anion Gap 11 mmol/L (8-16); Aspartate Amino Transferase 38 U/L (14-36); Bilirubin,Total 0.4 mg/dL (0.2-1.3); Blood Urea Nitrogen 28 mg/dL (7-17); Carbon Dioxide 25 mmol/L (22-30); Chloride 105 mmol/L (98-107); Estimated CRCL calculation 28 ml/min; Estimated Glomerular Filt Rate 34; Glucose 87 mg/dL (65-110); Sodium 141 mmol/L (137-145)
[2021-03-28 08:00] VITALS: PULSE 62; O2SAT 97
[2021-03-28] MEDS: buPROPion HCL SR (12HR) 100 MG TABCR 200 MG PO (08:01)
[2021-03-28] MEDS: INDOMETHACIN 25 MG CAPSULE PO (08:01)
[2021-03-28] MEDS: FLUoxetine HCL 20 MG CAPSULE 40 MG PO (08:01)
[2021-03-28] MEDS: COLCHICINE 0.6 MG TABLET PO (08:01)
[2021-03-28] MEDS: ASPIRIN 81 MG ENTERIC TABLET PO (08:02)
[2021-03-28] MEDS: predniSONE 20 MG TABLET PO (08:02)
[2021-03-28 08:03] VITALS: PULSE 59
[2021-03-28] MEDS: ATORVASTATIN 20 MG TABLET PO (08:04)
[2021-03-28] MEDS: LOSARTAN POTASSIUM 50 MG TABLET PO (08:04)
--- NOTE | 2021-03-28 09:30 | PM.PNCARD ---
Progress Note: A&P Assessment and Plan (1) Acute pericardial effusion: Code(s): I30.9 - Acute pericarditis, unspecified Status: Acute Assessment and Plan: Moderate sized pericardial effusion noted on CT. Follow up echocardiogram showed complex pericardial effusion as well as a thick pericardium. Patient is not exhibiting any hemodynamic compromise as a result of this effusion. Start prednisone 40mg daily x 3 days taper prednisone to 20mg daily Patient to follow up with our office for steroid taper. D/c home on 20mg daily. (2) Atypical chest pain: Code(s): R07.89 - Other chest pain Status: Acute Assessment and Plan: She has been experiencing atypical sounding chest pain for about a month and half. EKG does not have ST or T changes concerning for ischemia. Serial troponins are negative. She is no longer experiencing any chest pain. (3) Coronary artery disease: Code(s): I25.10 - Atherosclerotic heart disease of [place] coronary artery without angina pectoris Status: Acute Assessment and Plan: History of coronary artery disease with a prior stent placed in 2008 at [facility]. She has had some chest discomfort with exertion that she says has been increasing gradually over the past couple of years. Would not be unreasonable to undergo a stress test as an outpatient at some point. No indication for ischemic workup during this admission as she does not have any evidence of ischemia by EKG or cardiac enzymes. Her chest pain is likely related to her pericarditis. Subjective Date/time seen: 03/28/21 09:30 Interval history: Cardiology follow up for pericardial effusion Date of service 03/28/2021: She is feeling much better today. Denies any chest pain. No SOB. Plan for her is to discharge home today and follow up in our office in a few weeks. She will follow with Dr. Rueda. Review of Systems Review of Systems: All systems reviewed & are unremarkable except as noted in HPI and below Constitutional: Constitutional: Denies excessive sweating, Denies fatigue, Denies lethargy and Denies weakness Eyes: Eyes: Denies change in vision ENT: Reports Normal hearing present and Denies neck pain Cardiovascular: Cardiovascular: Reports chest pain, Denies diaphoresis, Denies pedal edema, Denies leg edema, Denies lightheadedness, Denies palpitations, Denies dyspnea and Denies dyspnea on exertion Respiratory: Respiratory: Denies dyspnea and Denies dyspnea on exertion Gastrointestinal: Gastrointestinal: Denies abdominal pain, Denies constipation and Denies diarrhea Genitourinary: Genitourinary: Denies dysuria Musculoskeletal: Musculoskeletal: Denies back pain and Denies neck pain Integumentary/Breasts: Skin/Breast: Denies rash Neurologic: Reports Normal hearing present, Denies Abnormal speech present, Denies confusion and Denies weakness Psychiatric: Psychiatric: Denies confusion and Reports depression Endocrine: Endocrine: Denies excessive sweating, Denies fatigue and Denies palpitations Hematologic/Lymphatic: Hematologic/Lymphatic: Denies easy bleeding and Denies easy bruising Exam Narrative: Obese older female lying comfortably in bed. Alert and oriented. Const: General: comfortable and no acute distress; No confusion Orientation/consciousness: No confusion Eyes: General: appearance normal, both eyes and all related structures Pupils: Equal, round and reactive pupils present Neck: Neck: supple and no JVD Resp: Effort & Inspection: normal respiratory effort Auscultation: clear to auscultation bilaterally Cardio: Rate: regular rate Rhythm: regular rhythm Heart sounds: no murmurs and no rubs GI: Auscultation: normal bowel sounds Skin: General skin exam: normal color Neuro: General: No confusion Cranial nerves: Yes Equal, round and reactive pupils present and Yes Normal hearing present Cognition (Neuro): normal cognition Speech: No A
--- NOTE | 2021-03-28 10:26 | P.DS_ITS ---
DS: Admitting Diagnosis Discharge Date 03/28/21 10:25am Admitting Diagnosis Pericardial Effusion/PNA DS: Discharge Diagnosis Discharge Diagnosis (1) Atypical chest pain: Code(s): R07.89 - Other chest pain Status: Acute Assessment and Plan: * troponins are negative * CT chest shows moderate pericardial effusion and bilateral pneumonia. * IV rocephin and IV zithromax * BC NGTD * WBC is 9.6 * trend labs * indomethacin and prednisone (2) Acute pericardial effusion: Code(s): I30.9 - Acute pericarditis, unspecified Status: Acute Assessment and Plan: * ESR is high * colchicine is ordered * indomethacin is ordered * cardiology consulted thank you for your help (3) Hyperlipidemia: Code(s): E78.5 - Hyperlipidemia, unspecified Status: Acute Assessment and Plan: * Chronic * Continue home atorvastatin 20mg PO daily (4) Hypertension: Code(s): I10 - Essential (primary) hypertension Status: Acute Assessment and Plan: * Bp stable 109/51 today * Continue metoprolol and losartan * Trend blood pressure (5) Coronary artery disease: Code(s): I25.10 - Atherosclerotic heart disease of [place] coronary artery without angina pectoris Status: Acute Assessment and Plan: * Chronic history of CAD * Continue asa 81mg PO daily (6) Pneumonia: Code(s): J18.9 - Pneumonia, unspecified organism Status: Acute Assessment and Plan: * Chest x-ray and CT chest also indicative of underlying pneumonia however no signs of respiratory infection evident. * Azithromycin and ceftriaxone * Covid negative * left trace pleural effusion * repeat chest xray showed better pericardial effusion, and PNA seems to be resolved (7) Hypothyroid: Code(s): E03.9 - Hypothyroidism, unspecified Status: Acute Assessment and Plan: * TSH 4.230, T3 0.64, T4 1.47 * Continue home levothyroxine 125mcg Daily DS: Summary Hospital Course Hospital Course: Patient is a 70 year old female with a past medical history of CAD with stent placement, HLD, HTN, Hyporthyroid who presented to the ED with complaints of chest pain. Evaluation showed moderated pericardial effusion, and bilateral PNA. Patient has been treated with azithromycin, rocephin, and steroids. Since admission patient has denied chest pain, shortness of breath, weakness fatigue, fevers, sweats, chills. Indomethacin was also added for treatment of possible pleuritic pain. Repeat chest xray did show bettering pericardial effusion and resolved PNA. Labs have been stable throughout the visit. Electrolytes have also been stable. Kidney function is at baseline. Education about sodium intake given. She is ready to go home and follow up visits have been established for her. Status at Discharge Functional status at discharge: independent ambulation Overall status at discharge: patient is back to baseline Time Spent with Patient Time attestation: Total time spent providing and/or coordinating discharge services: 48 minutes Time spent: Greater than 30 minutes Exam Const: General: cooperative, healthy appearing, comfortable, no acute distress, well developed, alert, awake and other Nutritional Appearance: well nourished and overweight Orientation/consciousness: oriented to person, oriented to pl
--- NOTE | 2021-03-28 10:26 | PM.DS ---
DS: Admitting Diagnosis Discharge Date 03/28/21 10:25am Admitting Diagnosis Pericardial Effusion/PNA DS: Discharge Diagnosis Discharge Diagnosis (1) Atypical chest pain: Code(s): R07.89 - Other chest pain Status: Acute Assessment and Plan: troponins are negative CT chest shows moderate pericardial effusion and bilateral pneumonia. IV rocephin and IV zithromax BC NGTD WBC is 9.6 trend labs indomethacin and prednisone (2) Acute pericardial effusion: Code(s): I30.9 - Acute pericarditis, unspecified Status: Acute Assessment and Plan: ESR is high colchicine is ordered indomethacin is ordered cardiology consulted thank you for your help (3) Hyperlipidemia: Code(s): E78.5 - Hyperlipidemia, unspecified Status: Acute Assessment and Plan: Chronic Continue home atorvastatin 20mg PO daily (4) Hypertension: Code(s): I10 - Essential (primary) hypertension Status: Acute Assessment and Plan: Bp stable 109/51 today Continue metoprolol and losartan Trend blood pressure (5) Coronary artery disease: Code(s): I25.10 - Atherosclerotic heart disease of [place] coronary artery without angina pectoris Status: Acute Assessment and Plan: Chronic history of CAD Continue asa 81mg PO daily (6) Pneumonia: Code(s): J18.9 - Pneumonia, unspecified organism Status: Acute Assessment and Plan: Chest x-ray and CT chest also indicative of underlying pneumonia however no signs of respiratory infection evident. Azithromycin and ceftriaxone Covid negative left trace pleural effusion repeat chest xray showed better pericardial effusion, and PNA seems to be resolved (7) Hypothyroid: Code(s): E03.9 - Hypothyroidism, unspecified Status: Acute Assessment and Plan: TSH 4.230, T3 0.64, T4 1.47 Continue home levothyroxine 125mcg Daily DS: Summary Hospital Course Hospital Course: Patient is a 70 year old female with a past medical history of CAD with stent placement, HLD, HTN, Hyporthyroid who presented to the ED with complaints of chest pain. Evaluation showed moderated pericardial effusion, and bilateral PNA. Patient has been treated with azithromycin, rocephin, and steroids. Since admission patient has denied chest pain, shortness of breath, weakness fatigue, fevers, sweats, chills. Indomethacin was also added for treatment of possible pleuritic pain. Repeat chest xray did show bettering pericardial effusion and resolved PNA. Labs have been stable throughout the visit. Electrolytes have also been stable. Kidney function is at baseline. Education about sodium intake given. She is ready to go home and follow up visits have been established for her. Status at Discharge Functional status at discharge: independent ambulation Overall status at discharge: patient is back to baseline Time Spent with Patient Time attestation: Total time spent providing and/or coordinating discharge services: 48 minutes Time spent: Greater than 30 minutes Exam Const: General: cooperative, healthy appearing, comfortable, no acute distress, well developed, alert, awake and other Nutritional Appearance: well nourished and overweight Orientation/consciousness: oriented to person, oriented to place, oriented to time and patient oriented x3 Limitations: no limitations HENMT: Head: normal to inspection Ears: hearing grossly normal bilaterally General nose exam: Normal external nose present Mouth: Yes Normal oral and palatal mucosa present, Yes lip normal and Yes tongue normal Teeth and gingiva: abnormal tooth and associated gingiva and poor dentition Eyes: General: appearance normal, both eyes and all related structures Neck: Neck: normal visual inspection, full ROM, trachea midline and supple Chest: Chest palpation & inspection: norm
[2021-03-28 12:57] LABS: CMV IgM Antibody <30.00 AU/mL (<30.00)
[2021-03-28 15:43] LABS: Mycoplasma IgM Antibody Titer 17 U/mL (<770)
[2021-03-29 16:34] LABS: EBV Nuclear Ab Interpretation Past; EBV Virus Capsid Ag IgG Ab >750.00 U/mL (<18.00); EBV Virus Capsid Ag IgM Ab <36.00 U/mL (<36.00)
[2021-03-29 20:32] LABS: Legionella pneumophila Ag Ur Not Detected (Not Detected)
== END 2021-03-28 11:55 | disposition home or self-care (01) | DRG 194 ==
LOC: ANHED 21:48 → ANH3MEDSUR 22:52
PROVIDERS: Family Medicine; Nurse Practitioner; Physician Assistant; Admitting Provider Internal Medicine; Emergency Provider Emergency Medicine; PCP Nurse Practitioner Adult Health; Visit Provider Internal Medicine
DX: J18.9 Pneumonia, unspecified organism (principal); I30.9 Acute pericarditis, unspecified; Z20.822 Contact with and (suspected) exposure to COVID-19; R07.89 Other chest pain; I25.10 Atherosclerotic heart disease of native coronary artery without angina pectoris; E78.5 Hyperlipidemia, unspecified; I10 Essential (primary) hypertension; F41.9 Anxiety disorder, unspecified; F32.9 Major depressive disorder, single episode, unspecified; E03.9 Hypothyroidism, unspecified; Z87.891 Personal history of nicotine dependence; Z79.82 Long term (current) use of aspirin; Z79.899 Other long term (current) drug therapy; Z95.5 Presence of coronary angioplasty implant and graft
CPT/HCPCS: 36415; 71045; 71275; 78580; 80048; 80053; 80074; 83735; 83880; 84439; 84443; 84480; 84484; 85025; 85027; 85380; 85610; 85652; 85730; 86038; 86140; 86645; 86658; 86664; 86665; 86703; 86738; 86769; 87040; 87426; 87449; 93005; 93306; 96365; 96366; 96368; 96375; 96376; 99285; A9270; A9540; C9803; G0378; G0432; J0456; J0696; J2270; J7512; Q9967

== ENCOUNTER 2021-04-11 11:07 | Inpatient (IN) | payer MEDICARE, SELFPAY ==
[2021-04-11] VITALS (16 sets, daily range): BP systolic 99–125; BP diastolic 56–68; PULSE 57–71; RESP 14–20; TEMP 36.2–36.5; O2SAT 98–100; BMI 26.2
--- NOTE | ~2021-04-11 | XR_ITS ---
EXAMINATION: XR chest 2V DATE: 04/11/2021 11:35 INDICATION: Soreness breath, weakness and diarrhea TECHNIQUE: frontal and lateral views of the chest were obtained. COMPARISON: Chest radiograph dated 03/28/2021 FINDINGS: The lungs remain clear with no focal airspace opacities, pulmonary edema, pleural effusion or pneumot horax. The cardiomediastinal silhouette is normal. Reverse left total shoulder arthroplasty. Moderate thoracolumbar spondylosis. Cholecystectomy clips in the upper abdomen. IMPRESSION: 1. No acute cardiopulmonary disease. Reviewed, dictated and finalized at location A.
--- NOTE | 2021-04-11 11:16 | ECG_ITS ---
Measurements Intervals [place] Rate: 66 P: 41 NC: 138 QRS: 16 QRSD: 90 T: 104 QT: 453 QTc: 475 Interpretive Statements SINUS RHYTHM ST-T WAVE ABNORMALITY IN ANTEROLAT/HIGH LAT LEADS- CONSIDER ISCHEMIA BASELINE ARTIFACT- I, III, AVR, AVL, AVF ABNORMAL ECG Electronically Signed On 04-11-2021 11:44:52 CDT by Demetrio Smith D.O.
[2021-04-11 11:37] LABS: Basophils Percent Auto 0.4 % (0.2-1.2); Eosinophils Absolute Auto 0.1 K/mm3 (0-0.3); Eosinophils Percent Auto 0.7 % (0-4.4); Hematocrit 47.8 % (37.0-47.0); Hemoglobin 16.5 g/dL (12.0-15.0); Immature Granulocyte Absolute 0.07 K/mm3 (0.00-0.031); Immature Granulocyte Percent A 0.6 % (0-0.5); Lymphocytes Absolute Auto 1.53 K/mm3 (0.9-3.2); Lymphocytes Percent Auto 13.6 % (18.3-44.2); Mean Corpuscular HGB Conc 34.5 g/dl (32-36); Mean Corpuscular Hemoglobin 32.9 pg (26-34); Mean Corpuscular Volume 95.4 fl (80-100); Mean Platelet Volume 10.4 fl (7.4-10.4); Neutrophils Absolute Auto 8.6 K/mm3 (1.3-6.7); Neutrophils Percent Auto 75.7 % (45.5-73.1); Platelet Count Result 241 k/mm3 (150-375); Red Blood Count 5.01 M/mm3 (4.2-5.4); Red Cell Distribution Width 12.8 % (11.5-14.5); White Blood Count 11.3 K/mm3 (4.5-10.0)
[2021-04-11 11:50] LABS: Anion Gap 18 mmol/L (8-16); Blood Urea Nitrogen 30 mg/dL (7-17); Calcium 9.4 mg/dL (8.4-10.2); Carbon Dioxide 14 mmol/L (22-30); Chloride 108 mmol/L (98-107); Estimated CRCL calculation 20 ml/min; Estimated Glomerular Filt Rate 22; Glucose 130 mg/dL (65-110); Sodium 140 mmol/L (137-145)
[2021-04-11 16:46] LABS: Add Urine Microscopic? YES; Appearance Urine Cloudy (Clear); Bacteria Urine Trace /hpf; Bilirubin Urine Negative (Negative); Blood Urine Negative (Negative); Color Urine Yellow (Yellow); Glucose Urine UA Negative (Negative); Hyaline Casts Urine 15-19 /lpf; Ketones Urine Trace mg/dL (Negative); Leukocyte Esterase Ur 2+ LEU/UL (Negative); Mucus Urine Few /lpf; Nitrate Urine Negative (Negative); Protein Urine 2+ mg/dL (Negative); Specific Grav Ur 1.024 (1.001-1.035); Squamous Epithelial Cell Urine Many /hpf (Few); Urobilinogen Urine Negative mg/dL (<2.0)
--- NOTE | 2021-04-11 16:53 | ED.GENADULT ---
HPI - General Adult General Chief complaint: Shortness of Breath/Dyspnea Stated complaint: SOB Time Seen by Provider: 04/11/21 15:45 Source: patient, family and EMS Mode of arrival: EMS Limitations: no limitations History of Present Illness HPI narrative: Patient 71 years old white female came from home complaining of acute shortness of breath while taking shower today. Associated with general weakness, lightheadedness and dizziness. Patient got discharged from our facility on March 28 with a diagnosis of acute pericardial effusion and was discharged on prednisone, colchicine, Zithromax and indomethacin. Immediately patient developed diarrhea, watery stool, on average 10 episodes a day. Lately patient unable to eat or drink enough. Patient main complaint at this time is feeling thirsty. Patient went to her cardiology office today for 2 weeks checkup and then referred to the emergency room Patient stopped taking her pericardial effusion medication yesterday Related Data Home Medications Medication Instructions Recorded Confirmed aspirin 81 mg PO DAILY 03/25/21 03/25/21 atorvastatin 20 mg PO DAILY 03/25/21 03/25/21 bupropion HCl 200 mg PO DAILY 03/25/21 03/25/21 fluoxetine 40 mg PO DAILY 03/25/21 03/25/21 levothyroxine 125 mcg PO DAILY 03/25/21 03/25/21 losartan 50 mg PO DAILY 03/25/21 03/25/21 metoprolol succinate 50 mg PO DAILY 03/25/21 03/25/21 Allergies Allergy/AdvReac Type Severity Reaction Status Date / Time No Known Allergies Allergy Verified 04/11/21 11:22 Review of Systems Review of Systems: CONSTITUTIONAL: Denies fever, chills, or sweats. EYES: Denies visual changes, redness, or discharge. ENT: Denies rhinorrhea, congestion, sore throat, or otalgia. CARDIOVASCULAR: Denies chest pain, palpitations, or edema. RESPIRATORY: Denies cough or dyspnea. GASTROINTESTINAL: Denies abdominal pain, nausea, vomiting, GENITOURINARY: Denies dysuria or hematuria. SKIN: Denies rash or itching. MUSCULOSKELETAL: Denies back pain, joint pain, or myalgia. NEUROLOGIC: Denies headache, numbness, or weakness. PSYCHIATRIC: Denies anxiety or depression. [facility] Social History Social History Smoking status: Former smoker Tobacco type: cigarettes Alcohol intake: never Substance use: never Gender identity (if verbalized by the patient): Female Spiritual care concerns: No Exam Narrative: General appearance: Well-developed, well-nourished, looks weak and ill Skin: Normal color Head: Normocephalic, nontraumatic Eyes: Clear conjunctiva ENT: Oropharynx normal, ears normal, nose normal Neck: Supple, nontender Chest and respiratory: Airway patent, no respiratory distress, no accessory muscle use Heart: Regular rate/rhythm Abdomen: Soft, nontender, no organomegaly, hyperactive bowel sounds Vascular: Normal peripheral pulses, normal capillary refill. 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 Zhao Date: 04/11/21 Time: 17:18 Vital Signs Vital signs: Vital Signs Temperature 36.4 C L 04/11/21 11:18 Pulse Rate 71 04/11/21 11:18 Respiratory Rate 18 04/11/21 11:18 Blood Pressure 112/66 04/11/21 11:18 Pulse Oximetry 100 04/11/21 11:18 Temperature 36.4 C L 04/11/21 11:18 Pulse Rate 63 04/11/21 17:01 Respiratory Rate 20 04/11/21 17:01 Blood Pressure 107/67 04/11/21 17:01 Pulse Oximetry 99 04/11/21 17:01 Medical Decision Making MDM Narrative Medical decision making narrative: Fa[place]
[2021-04-11] MEDS: SODIUM CHLORIDE 0.9% IV 1,000 ML 999 ML IV CONT (17:11)
--- NOTE | 2021-04-11 18:25 | ADMGEN ---
This patient, Anu Carranza, was admitted to Medical Room 252-01. Patient oriented to hospital policies and general routines including ID bracelet, bed and alarms, visiting hours, pain management, procedures, bathroom and other care routines, personal items, smoking policy, room service/diet, and visiting hours. Information on how to activate the Rapid Response Team has been discussed. Patient are encouraged to report perceived risks to care and to ask questions if they do not understand what they are told or what they should do.
[2021-04-11] MEDS: SODIUM CHLORIDE 0.9% IV 1,000 ML 125 ML IV CONT (20:18)
--- NOTE | 2021-04-11 20:44 | PM.IMHP ---
H&P: HPI History of Present Illness Date/Time: 04/11/21 20:44 Chief Complaint: Weakness Narrative: 70-year-old female past medical history of hypothyroidism, hypertension, hyperlipidemia and recent diagnosis of pericarditis who presented to the ER with weakness and shortness of breath. The patient was recently hospitalized for acute pericarditis and possible pneumonia (03/25 through 03/28). She was discharged on azithromycin and complete her antibiotic course. She was also discharged on colchicine and indomethacin as well as prednisone. She reports that the day prior to discharge from hospital she started having a couple of loose stools a day. The next days she started having to 10 loose brown stools a day. She has been continuing to have this every day since discharge. However yesterday are stools turned somewhat green in appearance. She reports crampy abdominal pain just prior to having her stools. She has had decreased oral appetite but had been continued to try to eat until yesterday where she just did not feel like eating at all. She denies any nausea or vomiting. She has not had any significant headache. She reports that today while she was in the shower getting ready to go to her follow-up cardiology appointment she became overwhelmingly weak and short of breath. She still went to her electrification adviser appointment but they directed her to come to the ER due to her symptoms. She denies any further chest pain since he was discharged from the hospital. She has not had any palpitations, orthopnea or paroxysmal nocturnal dyspnea. She denies any lower extremity swelling. She has not had any fevers or chills. She denies any cough, congestion, upper respiratory symptoms or recent COVID exposures. Review of Systems Review of Systems: 12 systems were reviewed with pertinent positives and negatives per HPI. Except as documented in the HPI, all other systems were reviewed and are negative. [facility] Past Medical History Medical History (Updated 04/12/21 @ 02:41 by Crista Welsh DO) Chronic kidney disease, stage IV (severe) With baseline creatinine between 1.2-1.5. Managed by Dr. Cool Coronary artery disease Essential hypertension GERD (gastroesophageal reflux disease) Hyperlipidemia Hypothyroidism Obstructive sleep apnea Intolerant to CPAP Spinal stenosis Surgical History Surgical History (Updated 04/11/21 @ 20:54 by Crista Welsh DO) History of heart artery stent (~2008) History of tonsillectomy Hx of cholecystectomy Family History Family History Other Adopted Unknown family medical history Social History Social History (Updated 04/12/21 @ 02:41 by Crista Welsh DO) Social History: She lives with her daughter and granddaughter. She has been since July 2018. 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 She ambulates without assistance. Primary care provider: Norma Alamo [employer] Code status: Full code Surrogate decision maker: Daughter Years smoked: 5 Smoking status: Former smoker Tobacco type: cigarettes Second hand tobacco smoke exposure: No Alcohol intake: never Substance use: never Gender identity (if verbalized by the patient): Female Spiritual care concerns: No Meds Home Medications and Allergies Home Medications Medication Instructions Recorded Confirmed Type aspirin 81 mg PO HS 03/25/21 04/11/21 History atorvastatin 20 mg PO HS 03/25/21 04/11/21 History bupropion HCl 200 mg PO HS 03/25/21 04/11/21 History fluoxetine 40 mg PO HS 03/25/21 04/11/21 History levothyroxine 125 mcg PO HS 03/25/21 04/11/21 History losartan 50 mg PO HS 03/25/21 04/11/21 History metoprolol succinate 50 mg PO HS 03/25/21 04/11/21 History colchicine [Colcrys] 0.6 mg PO Q12HR #60 tablet 03/28/21 04/11/21 Rx indomethacin 25 mg PO TIDWM #90 cap 03/28/21 04/11/21 Rx azithromycin 500 mg PO HS 04/11/21 04/11/21 History predniso
[2021-04-11] MEDS: ATORVASTATIN 20 MG TABLET PO (21:52)
[2021-04-11] MEDS: ASPIRIN 81 MG ENTERIC TABLET PO (21:52)
[2021-04-11] MEDS: METOPROLOL SUCCINATE EXT REL 50 MG TABCR PO (21:52)
[2021-04-11] MEDS: buPROPion HCL SR (12HR) 100 MG TABCR 200 MG PO (21:52)
[2021-04-11] MEDS: LEVOTHYROXINE SODIUM 125 MCG TABLET PO (21:52)
[2021-04-11] MEDS: FLUoxetine HCL 20 MG CAPSULE 40 MG PO (21:52)
[2021-04-11] MEDS: predniSONE 20 MG TABLET PO (21:53)
[2021-04-12] VITALS (10 sets, daily range): BP systolic 100–108; BP diastolic 46–61; PULSE 61–82; RESP 14–20; TEMP 36–36.8; O2SAT 96–99; BMI 26.2
[2021-04-12] MEDS: SODIUM CHLORIDE 0.9% IV 1,000 ML 125 ML IV CONT (05:23)
[2021-04-12 06:05] LABS: Hematocrit 39.1 % (37.0-47.0); Hemoglobin 13.5 g/dL (12.0-15.0); Immature Platelet Fraction Pct 4.2 % (0.9-11.2); Mean Corpuscular HGB Conc 34.5 g/dl (32-36); Mean Corpuscular Hemoglobin 33.3 pg (26-34); Mean Corpuscular Volume 96.5 fl (80-100); Mean Platelet Volume 10.8 fl (7.4-10.4); Platelet Count Result 139 k/mm3 (150-375); Red Blood Count 4.05 M/mm3 (4.2-5.4); Red Cell Distribution Width 12.6 % (11.5-14.5); White Blood Count 5.3 K/mm3 (4.5-10.0)
[2021-04-12 06:17] LABS: Anion Gap 9 mmol/L (8-16); Blood Urea Nitrogen 26 mg/dL (7-17); Calcium 8.3 mg/dL (8.4-10.2); Carbon Dioxide 20 mmol/L (22-30); Chloride 110 mmol/L (98-107); Estimated CRCL calculation 24 ml/min; Estimated Glomerular Filt Rate 32; Glucose 114 mg/dL (65-110); Potassium 3.7 mmol/L (3.4-5.0); Sodium 139 mmol/L (137-145)
--- NOTE | 2021-04-12 10:54 | PM.IMPN ---
Progress Note: A&P Assessment and Plan (1) Acute kidney injury superimposed on CKD: Code(s): N17.9 - Acute kidney failure, unspecified; N18.9 - Chronic kidney disease, unspecified Status: Acute Assessment and Plan: Patient has acute kidney injury on chronic kidney disease which is multifactorial from being started on colchicine and indomethacin for pericarditis along with dehydration from copious amounts of diarrhea and lack of appetite. I suspect colchicine resulted in diarrhea causing some dehydration. will hold colchicine and indomethacin at this time due to CHANDU creatinine improved with IV fluid hydration overnight and will discontinue IV fluids today. Continue monitoring renal function. Monitor strict I&O's. Repeat BMP in a.m.. Will hold the patient's losartan given her acute kidney injury. (2) Diarrhea: Qualifiers: Diarrhea type: unspecified type Qualified Code(s): R19.7 - Diarrhea, unspecified Code(s): R19.7 - Diarrhea, unspecified Status: Acute Assessment and Plan: Diarrhea could be secondary to being on 2x oral antibiotics since her prior admission (03/28/21) and not taking a probiotic vs from colchicine stool cultures have been sent at this time her diarrhea is improving, only 2 stools today she is not on any treatment at this time. Her appetite is improving today as well. Continue monitoring. (3) Pericarditis: Qualifiers: Chronicity: acute Pericarditis type: idiopathic Qualified Code(s): I30.0 - Acute nonspecific idiopathic pericarditis Code(s): I31.9 - Disease of pericardium, unspecified Status: Acute Assessment and Plan: Will continue the patient's prednisone 20 mg for her pericarditis. Indomethacin and colchicine held as discussed above. Cardiology has been consulted for further recommendations since she was supposed to see them in follow-up yesterday in the office prior to coming to the emergency room Patient is not having any more symptoms of her acute pericarditis since discharge. appreciate cardiology's input continue monitoring. Time Spent With Patient Time with patient: 25 - 35 minutes Subjective Date/time seen: 04/12/21 10:54 Interval history: Date of service 04/12/2021: the patient reports feeling better today. She has had 2 bowel movements which have been more formed but still green in color. She does not feel lightheaded or dizzy anymore with walking around. She denies any chest pain or shortness of breath like she had a prior hospitalization with acute pericarditis. She denies any nausea, vomiting, abdominal pain, abdominal cramping, leg swelling, calf pain, orthopnea, chest pain, shortness of breath, palpitations, or any other symptoms at this time. Review of Systems Review of Systems: All systems reviewed & are unremarkable except as noted in HPI and below Exam Narrative: General: 70-year-old woman sitting up in the chair talking to the health care manager. Appears comfortable. In no acute distress. Skin: No jaundice or cyanosis. Good skin turgor. Neck: Full range of motion. Supple. Respiratory: Lungs are clear to auscultation bilaterally. No wheezing, rales or rhonchi. No bony chest wall tenderness. Cardiovascular: The heart has a regular rate and rhythm without murmur. Lower extremities: No lower extremity edema. Distal pulses are easily palpated. No calf tenderness to palpation. Gastrointestinal: The abdomen is soft, nontender and nondistended with active bowel sounds. Psychiatric: Lucid and oriented. Memory intact. Neurologic: No focal deficits. Speech is clear. No facial drooping. Objective Data Vital Signs Vital Signs: Vital Signs - 24 hr 04/11/21 11:18 04/11/21 13:55 04/11/21 13:58 Temperature 97.5 F L
--- NOTE | 2021-04-12 14:37 | PC.NURSE ---
On 04/12/21, the student, Wally Romero, provided care and completed [facility] documentation on this patient. I have reviewed the student's documentation and agree with the findings.
--- NOTE | 2021-04-12 19:24 | PM.CNCAR ---
Assessment and Plan Assessment and plan (1) Pericarditis: Qualifiers: Pericarditis type: idiopathic Chronicity: acute Qualified Code(s): I30.0 - Acute nonspecific idiopathic pericarditis Code(s): I31.9 - Disease of pericardium, unspecified Status: Acute Assessment and Plan: Patient recently found to have acute pericarditis and a small to medium-sized pericardial effusion as well as a thickened pericardium on her earlier admission this month. She has improved symptomatically with the colchicine, indomethacin and prednisone but had side effects of diarrhea etc.. Most likely we can continue with just the prednisone 20 mg qd and hopefully the patient will not have recurrent pericardial symptoms. Will check a limited echo to evaluate the size of the effusion. (2) Abnormal EKG: Code(s): R94.31 - Abnormal electrocardiogram [ECG] [EKG] Status: Acute Assessment and Plan: The patient has developed significant T-wave inversion from V1 through V6 which is consistent with ischemia. However she also has TX depression consistent with pericarditis and her history is more consistent with pericarditis than ACS. Will continue treatment for pericarditis but keep in mind she could have other etiologies for chest pain. (3) Dyspnea: Qualifiers: Dyspnea type: unspecified Qualified Code(s): R06.00 - Dyspnea, unspecified Code(s): R06.00 - Dyspnea, unspecified Status: Acute Assessment and Plan: Appears resolved with hydration. Doubt any pericardial constriction. (4) Diarrhea: Qualifiers: Diarrhea type: unspecified type Qualified Code(s): R19.7 - Diarrhea, unspecified Code(s): R19.7 - Diarrhea, unspecified Status: Acute Assessment and Plan: Probably a side effect of colchicine, improving since the medication has been discontinued (5) Acute kidney injury superimposed on CKD: Code(s): N17.9 - Acute kidney failure, unspecified; N18.9 - Chronic kidney disease, unspecified Status: Acute Assessment and Plan: improved with cessation of medications and hydration. (6) Coronary artery disease: Code(s): I25.10 - Atherosclerotic heart disease of [place] coronary artery without angina pectoris Status: Acute Assessment and Plan: History of coronary stent followed by Dr. Gomez. History of Present Illness History of Present Illness Consult date/time: 04/12/21 19:24 Consult reason: Other (Pericardial effusion, dyspnea) Reason For Visit: Dyspnea/diarrhea/weakness/CHANDU Narrative: Anu Carranza is a 70-year-old female whom we were asked to see at the request of the hospitalists for our advice and opinion regarding her dyspnea and pericardial effusion, in consultation. She was diagnosed with acute pericarditis and possible pneumonia on hospitalization from 03/25/2021 through 03/28/2021 discharge with antibiotics, colchicine, indomethacin and prednisone. Echo showed a small effusion as below. She was readmitted with diarrhea (possibly secondary to colchicine), weakness and shortness of breath. She was found to have acute kidney injury thought to be related to diarrhea, dehydration and indomethacin. She has been rehydrated and the colchicine and indomethacin discontinued. She is feeling better, no longer week or dyspneic, and with improvement of diarrhea. She has not had any of that severe chest pain that she had last admission. She still notes a little discomfort on deep inspiration. She has a history of CAD and coronary stent in 2008. She sees Dr. Lorrie Gomez at [place]. Review of Systems Constitutional: Constitutional: Reports weakness ( Improved) Eyes: Eyes: Reports no additional eye c
[2021-04-12] MEDS: buPROPion HCL SR (12HR) 100 MG TABCR 200 MG PO (20:12)
[2021-04-12] MEDS: LEVOTHYROXINE SODIUM 125 MCG TABLET PO (20:12)
[2021-04-12] MEDS: FLUoxetine HCL 20 MG CAPSULE 40 MG PO (20:12)
[2021-04-12] MEDS: METOPROLOL SUCCINATE EXT REL 50 MG TABCR PO (20:12)
[2021-04-12] MEDS: ATORVASTATIN 20 MG TABLET PO (20:12)
[2021-04-12] MEDS: ASPIRIN 81 MG ENTERIC TABLET PO (20:12)
[2021-04-12] MEDS: predniSONE 20 MG TABLET PO (20:12)
[2021-04-13] VITALS (10 sets, daily range): BP systolic 101–110; BP diastolic 55–57; PULSE 54–80; RESP 16–20; TEMP 35.9–37; O2SAT 97–100
--- NOTE | 2021-04-13 | ECHOL_ITS ---
Patient Info Name: Anu Carranza Age: 70 years : 1950 Gender: Female Ht: 63 in Wt: 147 lbs BSA: 1.74 m2 HR: 58 bpm BP: 110 / 55 mmHg Heart Rhythm: Sinus Rhythm Exam Date: 04/13/2021 8:23 AM Exam Location: [facility] Patient Status: Inpatient Admit Date: 04/11/2021 Staff Ordering Physician: Tessie Cabezas MD System Operator: Semaj Todd RDCS, RT Attending Provider: Heidi Hernandez PA-C Referring Physician: Raulito GODINEZ; Exam Type: CA echo limited Study Info Indications I31.3 - Pericardial effusion (noninflammatory) Limited two-dimensional transthoracic echocardiogram is performed. Summary 1. Limited echocardiogram to assess pericardial fluid. 2. Normal left ventricular systolic function. 3. Thickened anterior pericardium. 4. Echogenic material in the pericardial sac, will 0.7-1.2 cm thick, with only trivial to no free fluid. No tamponade physiology. 5. Normal sinus rhythm. Report Signatures
[2021-04-13 06:55] LABS: Anion Gap 8 mmol/L (8-16); Blood Urea Nitrogen 19 mg/dL (7-17); Calcium 8.3 mg/dL (8.4-10.2); Carbon Dioxide 21 mmol/L (22-30); Chloride 111 mmol/L (98-107); Estimated CRCL calculation 27 ml/min; Estimated Glomerular Filt Rate 37; Glucose 127 mg/dL (65-110); Potassium 3.9 mmol/L (3.4-5.0); Sodium 140 mmol/L (137-145)
--- NOTE | 2021-04-13 11:02 | PM.IMPN ---
Progress Note: A&P Assessment and Plan (1) Acute kidney injury superimposed on CKD: Code(s): N17.9 - Acute kidney failure, unspecified; N18.9 - Chronic kidney disease, unspecified Status: Acute Assessment and Plan: Patient has acute kidney injury on chronic kidney disease which is multifactorial from being started on colchicine and indomethacin for pericarditis along with dehydration from copious amounts of diarrhea and lack of appetite. I suspect colchicine resulted in diarrhea causing some dehydration. Will hold colchicine and indomethacin at this time due to CHANDU creatinine improved with IV fluid hydration overnight and will discontinue IV fluids now. Cr back to baseline. Will hold the patient's losartan given her acute kidney injury and low normal blood pressures. Continue monitoring renal function. Monitor strict I&O's. Repeat BMP in a.m.. (2) Diarrhea: Qualifiers: Diarrhea type: unspecified type Qualified Code(s): R19.7 - Diarrhea, unspecified Code(s): R19.7 - Diarrhea, unspecified Status: Acute Assessment and Plan: Diarrhea could be secondary to being on 2x oral antibiotics since her prior admission (03/28/21) and not taking a probiotic vs from colchicine stool cultures have been sent at this time, pending results her diarrhea is improved from 10 stools to 6 stools yesterday, but she is still concerned with the amount and frequency. she is not on any treatment at this time, other than discontinuing Colchicine. Her appetite is improving today as well. Continue monitoring. (3) Pericarditis: Qualifiers: Pericarditis type: idiopathic Chronicity: acute Qualified Code(s): I30.0 - Acute nonspecific idiopathic pericarditis Code(s): I31.9 - Disease of pericardium, unspecified Status: Acute Assessment and Plan: Will continue the patient's prednisone 20 mg for her pericarditis. Indomethacin and colchicine held as discussed above. Cardiology has been consulted and recommend prednisone 20 mg daily at this time. Cardiology is ordering a limited echocardiogram for further evaluation of her pericardial effusion. Patient is not having any more symptoms of her acute pericarditis since discharge. Appreciate cardiology's input continue monitoring. Subjective Date/time seen: 04/13/21 11:02 Interval history: Date of service 04/13/2021: the patient reports feeling better today, but still having diarrhea, watery in nature and 6 times yesterday, and 3 times today. She does not feel lightheaded or dizzy anymore with walking around. She denies any chest pain or shortness of breath like she had a prior hospitalization with acute pericarditis. She denies any nausea, vomiting, abdominal pain, abdominal cramping, leg swelling, calf pain, orthopnea, chest pain, shortness of breath, palpitations, or any other symptoms at this time. Review of Systems Review of Systems: All systems reviewed & are unremarkable except as noted in HPI and below Exam Narrative: General: 70-year-old woman sitting up in bed watching TV. Appears comfortable. In no acute distress. Skin: No jaundice or cyanosis. Good skin turgor. Neck: Full range of motion. Supple. Respiratory: Lungs are clear to auscultation bilaterally. No wheezing, rales or rhonchi. No bony chest wall tenderness. Cardiovascular: The heart has a regular rate and rhythm without murmur. Lower extremities: No lower extremity edema. Distal pulses are easily palpated. No calf tenderness to palpation. Gastrointestinal: The abdomen is soft, nontender and nondistended with active bowel sounds. Psychiatric: Lucid and oriented. Memory intact. Neurologic: No focal deficits. Speech is clear. No facial drooping. Objective Data Vital Signs
--- NOTE | 2021-04-13 19:11 | PM.PNCARD ---
Progress Note: A&P Assessment and Plan (1) Pericarditis: Qualifiers: Pericarditis type: idiopathic Chronicity: acute Qualified Code(s): I30.0 - Acute nonspecific idiopathic pericarditis Code(s): I31.9 - Disease of pericardium, unspecified Status: Acute Assessment and Plan: Patient diagnosed with acute pericarditis 03/24/2021 which had apparently been present for a while, a small to medium-sized pericardial effusion as well as a thickened pericardium. She has improved symptomatically with the colchicine, indomethacin and prednisone but had side effects of diarrhea etc.. Recommend: Prednisone 20 mg qd for another week then reduce to 10 mg daily. We will reschedule her office follow-up. Hopefully can be discharged tomorrow. (2) Abnormal EKG: Code(s): R94.31 - Abnormal electrocardiogram [ECG] [EKG] Status: Acute Assessment and Plan: The patient has developed significant T-wave inversion from V1 through V6 which is consistent with ischemia. However she also has [place] depression consistent with pericarditis and her history is more consistent with pericarditis than ACS. Will continue treatment for pericarditis but keep in mind she could have other etiologies for chest pain. (3) Dyspnea: Qualifiers: Dyspnea type: unspecified Qualified Code(s): R06.00 - Dyspnea, unspecified Code(s): R06.00 - Dyspnea, unspecified Status: Acute Assessment and Plan: Appears resolved with hydration. Doubt any pericardial constriction. (4) Diarrhea: Qualifiers: Diarrhea type: unspecified type Qualified Code(s): R19.7 - Diarrhea, unspecified Code(s): R19.7 - Diarrhea, unspecified Status: Acute Assessment and Plan: Probably a side effect of colchicine, improving since the medication has been discontinued (5) Acute kidney injury superimposed on CKD: Code(s): N17.9 - Acute kidney failure, unspecified; N18.9 - Chronic kidney disease, unspecified Status: Acute Assessment and Plan: improved with cessation of medications and hydration. (6) Coronary artery disease: Code(s): I25.10 - Atherosclerotic heart disease of [place] coronary artery without angina pectoris Status: Acute Assessment and Plan: History of coronary stent followed by Dr. Gomez. Subjective Date/time seen: 04/13/21 19:11 Interval history: Follow-up for pericardial effusion. Patient was diagnosed with acute pericarditis and a small effusion earlier this month, discharged with colchicine, prednisone, and a nonsteroidal but returned with diarrhea, dehydration, acute kidney injury. Her colchicine and nonsteroidal have been discontinued and she has been hydrated and feeling better. Date of service 04/13/2021: Unhappy that the diarrhea has come back, C diff culture is pending. No further chest pain and overall feeling better. Echocardiogram showed no pericardial fluid but she does have echodense material in the pericardial sac, probably resolving effusion. No tamponade. Review of Systems Constitutional: Constitutional: Reports no additional constitutional complaints ENT: Reports system reviewed and no additional complaints, except as documented Cardiovascular: Cardiovascular: Denies chest pain, Denies leg edema and Denies lightheadedness Respiratory: Respiratory: Denies dyspnea Gastrointestinal: Gastrointestinal: Denies abdominal pain and Reports diarrhea Genitourinary: Genitourinary: Reports no additional female genitourinary complaints Musculoskeletal: Musculoskeletal: Reports no additional musculoskeletal complaints Neurologic: Reports system reviewed and no additional complaints, except as documented Psychiat
[2021-04-13] MEDS: METOPROLOL SUCCINATE EXT REL 50 MG TABCR PO (20:52)
[2021-04-13] MEDS: predniSONE 20 MG TABLET PO (20:52)
[2021-04-13] MEDS: ATORVASTATIN 20 MG TABLET PO (20:53)
[2021-04-13] MEDS: buPROPion HCL SR (12HR) 100 MG TABCR 200 MG PO (20:53)
[2021-04-13] MEDS: FLUoxetine HCL 20 MG CAPSULE 40 MG PO (20:53)
[2021-04-13] MEDS: LEVOTHYROXINE SODIUM 125 MCG TABLET PO (20:53)
[2021-04-13] MEDS: ASPIRIN 81 MG ENTERIC TABLET PO (20:53)
[2021-04-14] VITALS (11 sets, daily range): BP systolic 107–115; BP diastolic 54–59; PULSE 55–65; RESP 16–20; TEMP 35.8–36.5; O2SAT 96–99
[2021-04-14 06:26] LABS: Anion Gap 8 mmol/L (8-16); Blood Urea Nitrogen 17 mg/dL (7-17); Calcium 8.4 mg/dL (8.4-10.2); Carbon Dioxide 23 mmol/L (22-30); Chloride 108 mmol/L (98-107); Estimated CRCL calculation 27 ml/min; Estimated Glomerular Filt Rate 37; Glucose 126 mg/dL (65-110); Magnesium 1.9 mg/dL (1.6-2.3); Potassium 3.9 mmol/L (3.4-5.0); Sodium 139 mmol/L (137-145)
[2021-04-14] MEDS: calcium polycarbophiL 625 MG TABLET PO (12:02)
[2021-04-14] MEDS: SACCHAROMYCES BOULARDII 250 MG CAPSULE PO ×2 (12:02→16:18)
--- NOTE | 2021-04-14 12:43 | PM.IMPN ---
Progress Note: A&P Assessment and Plan (1) Acute kidney injury superimposed on CKD: Code(s): N17.9 - Acute kidney failure, unspecified; N18.9 - Chronic kidney disease, unspecified Status: Acute Assessment and Plan: Patient has acute kidney injury on chronic kidney disease which is multifactorial from being started on colchicine and indomethacin for pericarditis along with dehydration from copious amounts of diarrhea and lack of appetite. I suspect colchicine resulted in diarrhea causing some dehydration. Will hold colchicine and indomethacin at this time due to CHANDU creatinine improved with IV fluid hydration overnight and will discontinue IV fluids now. Cr back to baseline. Will hold the patient's losartan given her acute kidney injury and low normal blood pressures. Continue monitoring renal function. Monitor strict I&O's. Repeat BMP in a.m.. (2) Diarrhea: Qualifiers: Diarrhea type: unspecified type Qualified Code(s): R19.7 - Diarrhea, unspecified Code(s): R19.7 - Diarrhea, unspecified Status: Acute Assessment and Plan: Diarrhea could be secondary to being on 2x oral antibiotics since her prior admission (03/28/21) and not taking a probiotic vs from colchicine stool cultures have been sent at this time, pending results her diarrhea is still present and >10 yesterday, but she is still concerned with the amount and frequency. she is not on any treatment at this time, other than discontinuing Colchicine. Her appetite is improving today as well. Continue monitoring. (3) Pericarditis: Qualifiers: Pericarditis type: idiopathic Chronicity: acute Qualified Code(s): I30.0 - Acute nonspecific idiopathic pericarditis Code(s): I31.9 - Disease of pericardium, unspecified Status: Acute Assessment and Plan: Will continue the patient's prednisone 20 mg for her pericarditis. Indomethacin and colchicine held as discussed above. Cardiology has been consulted and recommend prednisone 20 mg daily at this time. Limited echocardiogram showing Normal left ventricular systolic function. Thickened anterior pericardium. Echogenic material in the pericardial sac, will 0.7-1.2 cm thick, with only trivial to no free fluid. No tamponade physiology. Patient is not having any more symptoms of her acute pericarditis since discharge. Appreciate cardiology's input continue monitoring. Time Spent With Patient Time with patient: 25 - 35 minutes Subjective Date/time seen: 04/14/21 12:43 Interval history: Date of service 04/14/2021: Patient reports increased diarrhea yesterday with about 10 stools. She still reports of being diarrhea and watery in nature. She denies any fevers, chills, abdominal cramping. Otherwise not having any chest pain, shortness of breath cough, lightheadedness, dizziness, leg swelling, calf pain, or any other symptoms at this time. Review of Systems Review of Systems: All systems reviewed & are unremarkable except as noted in HPI and below Exam Narrative: General: 70-year-old woman sitting up in bed watching TV. Appears comfortable. In no acute distress. Skin: No jaundice or cyanosis. Good skin turgor. Neck: Full range of motion. Supple. Respiratory: Lungs are clear to auscultation bilaterally. No bony chest wall tenderness. Cardiovascular: The heart has a regular rate and rhythm without murmur. Lower extremities: No lower extremity edema. Distal pulses are easily palpated. No calf tenderness to palpation. Gastrointestinal: The abdomen is soft, nontender and nondistended with active bowel sounds. Psychiatric: Lucid and oriented. Memory intact. Neurologic: No focal deficits. Speech is clear. No facial drooping. Objective Data Vital Signs Vital Signs: Vit
[2021-04-14] MEDS: ATORVASTATIN 20 MG TABLET PO (20:59)
[2021-04-14] MEDS: predniSONE 20 MG TABLET PO (20:59)
[2021-04-14] MEDS: ASPIRIN 81 MG ENTERIC TABLET PO (20:59)
[2021-04-14] MEDS: FLUoxetine HCL 20 MG CAPSULE 40 MG PO (20:59)
[2021-04-14] MEDS: METOPROLOL SUCCINATE EXT REL 50 MG TABCR PO (20:59)
[2021-04-14] MEDS: buPROPion HCL SR (12HR) 100 MG TABCR 200 MG PO (20:59)
[2021-04-15] VITALS: PULSE 62
[2021-04-15 04:00] VITALS: PULSE 54
[2021-04-15 04:31] VITALS: BP 100/64; PULSE 56; RESP 20; TEMP 36.1; O2SAT 96
[2021-04-15] MEDS: LEVOTHYROXINE SODIUM 125 MCG TABLET PO (05:48)
[2021-04-15 06:09] LABS: Anion Gap 6 mmol/L (8-16); Blood Urea Nitrogen 17 mg/dL (7-17); Calcium 8.4 mg/dL (8.4-10.2); Carbon Dioxide 26 mmol/L (22-30); Chloride 107 mmol/L (98-107); Estimated CRCL calculation 31 ml/min; Estimated Glomerular Filt Rate 44; Glucose 129 mg/dL (65-110); Magnesium 1.8 mg/dL (1.6-2.3); Potassium 3.9 mmol/L (3.4-5.0); Sodium 139 mmol/L (137-145)
[2021-04-15] MEDS: SACCHAROMYCES BOULARDII 250 MG CAPSULE PO (08:16)
[2021-04-15] MEDS: calcium polycarbophiL 625 MG TABLET PO (08:16)
--- NOTE | 2021-04-15 09:46 | PM.DS ---
DS: Admitting Diagnosis Discharge Date 04/15/21 Admitting Diagnosis Weakness/Diarrhea DS: Discharge Diagnosis Discharge Diagnosis (1) Acute kidney injury superimposed on CKD: Code(s): N17.9 - Acute kidney failure, unspecified; N18.9 - Chronic kidney disease, unspecified Status: Acute Assessment and Plan: The patient is a 70 year old woman with a history of hypothyroidism, hypertension, hyperlipidemia and recent diagnosis of pericarditis who presented to the ER with weakness, near syncope and diarrhea. The patient was recently hospitalized for acute pericarditis and possible pneumonia (03/25 through 03/28). She was discharged on azithromycin (21 days) and augmentin (10 days), Indomethacin TIDWM, Colchicine Q12hrs and predisone taper daily until follow up with Cardiology. After discharge the patient continued to have diarrhea, about 10 per day. She began feeling weak, near syncopal episodes and quit taking all medications on 04/10/21 and decided to come to the ER for further evaluation. Initial vitals showed blood pressure of 112/66, heart rate 71, afebrile, normal oxygenation on room air. Initial labs showed slight leukocytosis at 11,300, hemoconcentration of H&H from dehydration, Acute on chronic renal insufficiency with Cr 2.2/30 with acidosis. CXR showed No acute cardiopulmonary disease. The patient was admitted into the hospital for dehydration, started on IV fluids, stool cultures obtained, antibiotics discontinued and cardiology consulted for their recommendations for treatment of pericarditis since she missed her appointment and came to the ER. Diarrhea most likely associated with antibiotics and colchicine usage. The patient was on IV fluids with improvement of her creatinine back to her baseline Stool cultures showed negative C diff and it was improving with fiber and probiotics Cardiology evaluated the patient and recommended continuing Prednisone taper 20 mg for 1 week, then 10 mg until follow up. Follow up with PCP (2) Diarrhea: Qualifiers: Diarrhea type: unspecified type Qualified Code(s): R19.7 - Diarrhea, unspecified Code(s): R19.7 - Diarrhea, unspecified Status: Acute Assessment and Plan: Diarrhea could be secondary to being on 2x oral antibiotics since her prior admission (03/28/21) and not taking a probiotic vs from colchicine stool cultures have been sent at this time, pending results Improved with Fiber and Probiotics (3) Pericarditis: Qualifiers: Chronicity: acute Pericarditis type: idiopathic Qualified Code(s): I30.0 - Acute nonspecific idiopathic pericarditis Code(s): I31.9 - Disease of pericardium, unspecified Status: Acute Assessment and Plan: Will continue the patient's prednisone 20 mg for her pericarditis. Indomethacin and colchicine held as discussed above. Cardiology has been consulted and recommend prednisone 20 mg daily at this time. Limited echocardiogram showing Normal left ventricular systolic function. Thickened anterior pericardium. Echogenic material in the pericardial sac, will 0.7-1.2 cm thick, with only trivial to no free fluid. No tamponade physiology. Prednisone 20 mg for 1 week, then decrease to 10 mg daily DS: Summary Hospital Course Hospital Course: See above Status at Discharge Cognitive/behavioral status at discharge: Stable, improved. Time Spent with Patient Time attestation: Total time spent providing and/or coordinating discharge services: 41 Time spent: Greater than 30 minutes Exam Narrative: General: 70-year-old woman sitting up in bed watching TV. Appears comfortable. In no acute distress. Skin: No jaundice or cyanosis. Good skin turgor. Neck: Full range of motion. Supple. Respiratory: Lungs are clear to auscul
--- NOTE | 2021-04-21 09:26 | PC.NURSE ---
sTool cx is negative for samonella.
== END 2021-04-15 11:00 | disposition home or self-care (01) | DRG 641 ==
LOC: ANHED 17:18 → ANH2MED 04-12 07:02
PROVIDERS: Emergency Medicine; Internal Medicine; Admitting Provider Family Medicine; Emergency Provider Emergency Medicine; PCP Nurse Practitioner Adult Health; Visit Provider Physician Assistant
DX: E86.0 Dehydration (principal); N17.9 Acute kidney failure, unspecified; I30.0 Acute nonspecific idiopathic pericarditis; N18.4 Chronic kidney disease, stage 4 (severe); I12.9 Hypertensive chronic kidney disease with stage 1 through stage 4 chronic kidney disease, or unspecified chronic kidney disease; R19.7 Diarrhea, unspecified; E03.9 Hypothyroidism, unspecified; E78.5 Hyperlipidemia, unspecified; G47.33 Obstructive sleep apnea (adult) (pediatric); K21.9 Gastro-esophageal reflux disease without esophagitis; I25.10 Atherosclerotic heart disease of native coronary artery without angina pectoris; R94.31 Abnormal electrocardiogram [ECG] [EKG]; Z79.82 Long term (current) use of aspirin; Z79.899 Other long term (current) drug therapy; Z87.891 Personal history of nicotine dependence; Z95.5 Presence of coronary angioplasty implant and graft
CPT/HCPCS: 36415; 71046; 80048; 81001; 83735; 85025; 85027; 85055; 87045; 87086; 87324; 87427; 89055; 93005; 93308; 97161; 97165; 99285; A9270; J7030; J7512

== ENCOUNTER 2021-05-09 13:54 | Emergency (ER) | payer MEDICARE, SELFPAY ==
--- NOTE | ~2021-05-09 | CT_ITS ---
EXAMINATION: CTA chest PE protocol DATE: 05/09/2021 15:33 CDT INDICATION: Pulmonary embolism. Shortness of breath. Elevated d-dimer. TECHNIQUE: Computed tomographic angiography (CTA) of the chest was performed with 100 mL Omnipaque-35 0 intravenous contrast. The dose-length product was 453.05 mGy-cm. Maximum intensity projection 3D-re constructions of the aorta and other arteries were constructed by the technologist on a separate work station. COMPARISON: CT dated 03/24/2021. FINDINGS: Study is technically adequate without evidence for pulmonary embolism. Small left pleural e ffusion. Small pericardial effusion. Small hiatal hernia. No evidence for aortic aneurysm or dissecti on. Upper abdomen is unremarkable. There is dependent atelectasis. No endobronchial lesions. No thora cic lymphadenopathy. There is moderate-severe multilevel spondylosis. IMPRESSION: 1. No pulmonary embolism. 2: Small left pleural effusion. Small pericardial effusion. 3: Dependent atelectasis. Reviewed, dictated and finalized at location A.
--- NOTE | ~2021-05-09 | XR_ITS ---
EXAMINATION: XR chest 2V EXAM DATE: 05/09/2021 14:33 INDICATION: LT Side chest pain Radiates To Jaw. Smoker, H/O HTN. TECHNIQUE: Frontal and lateral projections of the chest obtained and reviewed. Comparison is made to prior examination from 04/11/2021. FINDINGS: The lungs are clear. There is small left pleural effusion, has developed compared to previo us exam. The cardiomediastinal silhouette is within normal limits. There is no pneumothorax suspecte d. Left shoulder replacement. There are cholecystectomy clips. IMPRESSION: Development of small pleural effusion. Clear lungs. Reviewed, dictated and finalized at location B.
--- NOTE | 2021-05-09 14:04 | ECG_ITS ---
Measurements Intervals [place] Rate: 75 P: -13 PA: 123 QRS: -8 QRSD: 84 T: 108 QT: 379 QTc: 423 Interpretive Statements SINUS RHYTHM BORDERLINE ST-T WAVE ABNORMALITY- ANTEROLAT/HIGH LAT LEADS BASELINE ARTIFACT- I, V1-V6 BORDERLINE ECG Electronically Signed On 05-09-2021 16:08:15 CDT by Demetrio Smith D.O.
[2021-05-09 14:07] VITALS: PULSE 75
[2021-05-09 14:08] VITALS: BP 145/81; PULSE 75; RESP 15; O2SAT 97
[2021-05-09] MEDS: KETOROLAC 30 MG/ML VIAL (*BKC) IV PUSH (14:41)
[2021-05-09 14:51] LABS: Basophils Percent Auto 0.4 % (0.2-1.2); Eosinophils Percent Auto 0.3 % (0-4.4); Hematocrit 43.1 % (37.0-47.0); Hemoglobin 14.9 g/dL (12.0-15.0); Immature Granulocyte Percent A 0.9 % (0-0.5); Lymphocytes Absolute Auto 1.08 K/mm3 (0.9-3.2); Lymphocytes Percent Auto 9.9 % (18.3-44.2); Mean Corpuscular HGB Conc 34.6 g/dl (32-36); Mean Corpuscular Hemoglobin 33.7 pg (26-34); Mean Corpuscular Volume 97.5 fl (80-100); Mean Platelet Volume 9.3 fl (7.4-10.4); Monocytes Absolute Auto 0.9 K/mm3 (0.1-0.6); Monocytes Percent Auto 8.6 % (2.6-8.5); Neutrophils Absolute Auto 8.7 K/mm3 (1.3-6.7); Neutrophils Percent Auto 79.9 % (45.5-73.1); Platelet Count Result 210 k/mm3 (150-375); Red Blood Count 4.42 M/mm3 (4.2-5.4); Red Cell Distribution Width 13.7 % (11.5-14.5); White Blood Count 10.9 K/mm3 (4.5-10.0)
[2021-05-09] MEDS: NITROGLYCERIN SL 0.4 MG TABLET SUBLINGUAL (14:58)
[2021-05-09 15:02] LABS: Anion Gap 10 mmol/L (8-16); Blood Urea Nitrogen 19 mg/dL (7-17); Calcium 9.7 mg/dL (8.4-10.2); Carbon Dioxide 25 mmol/L (22-30); Chloride 100 mmol/L (98-107); Estimated CRCL calculation 40 ml/min; Estimated Glomerular Filt Rate 49; Glucose 131 mg/dL (65-110); Potassium 4.2 mmol/L (3.4-5.0); Sodium 135 mmol/L (137-145)
[2021-05-09 15:06] LABS: Prothrombin Time 12.9 Seconds (11.1-14.7)
[2021-05-09 15:07] LABS: Partial Thromboplastin Time 29.3 SECONDS (22.3-36.8)
[2021-05-09 15:09] LABS: D Dimer 0.68 ug/mL (<0.48)
[2021-05-09 15:13] LABS: Troponin I < 0.012 ng/mL (0.000-0.034)
--- NOTE | 2021-05-09 15:26 | ED.CHESTPAIN ---
HPI - Chest Pain General Chief Complaint: Chest Pain Stated Complaint: chest pain Time Seen by Provider: 05/09/21 14:03 History of Present Illness HPI narrative: Patient is a 70-year-old female who presents ER with left-sided neck pain. Goes into her left shoulder and then goes down into her left side and chest. Worse with deep breath. Denies fevers or chills or sweats. No hemoptysis or cough. Ongoing for the last 4 days. Has not tried any pain medication. Patient has previous diagnosis of pericarditis recently. She was on colchicine but did not tolerate it. She has been taking prednisone to help. No lower extremity swelling or pain. Related Data Home Medications Medication Instructions Recorded Confirmed aspirin 81 mg PO HS 03/25/21 04/11/21 atorvastatin 20 mg PO HS 03/25/21 04/11/21 bupropion HCl 200 mg PO HS 03/25/21 04/11/21 fluoxetine 40 mg PO HS 03/25/21 04/11/21 levothyroxine 125 mcg PO HS 03/25/21 04/11/21 metoprolol succinate 50 mg PO HS 03/25/21 04/11/21 Allergies Allergy/AdvReac Type Severity Reaction Status Date / Time No Known Allergies Allergy Verified 05/09/21 14:12 Review of Systems Review of Systems: All systems reviewed & are unremarkable except as noted in HPI and below Constitutional: Constitutional: Denies chills, Denies fever(s) and Denies weakness ENT: Denies nasal congestion and Denies sore throat Cardiovascular: Cardiovascular: Reports chest pain, Denies rapid heart rate and Denies radiating jaw, neck or arm pain Respiratory: Respiratory: Denies cough, Reports dyspnea and Denies wheezing Gastrointestinal: Gastrointestinal: Denies abdominal pain, Denies nausea and Denies vomiting Neurologic: Denies focal weakness and Denies numbness [facility] Past Medical History Medical History (Updated 05/09/21 @ 16:01 by Tyrel Tovar MD) Chronic kidney disease, stage IV (severe) With baseline creatinine between 1.2-1.5. Managed by Dr. Cool Coronary artery disease Essential hypertension GERD (gastroesophageal reflux disease) Hyperlipidemia Hypothyroidism Obstructive sleep apnea Intolerant to CPAP Spinal stenosis Surgical History Surgical History History of heart artery stent (~2008) History of tonsillectomy Hx of cholecystectomy Family History Family History Other Adopted Unknown family medical history Social History Social History Social History: She lives with her daughter and granddaughter. She has been since July 2018. 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 She ambulates without assistance. Primary care provider: Norma Alamo [employer] Code status: Full code Surrogate decision maker: Daughter Years smoked: 5 Smoking status: Former smoker Tobacco type: cigarettes Second hand tobacco smoke exposure: No Alcohol intake: never Substance use: never Gender identity (if verbalized by the patient): Female Spiritual care concerns: No Exam Narrative: GENERAL: Well-appearing, well-nourished, and in no acute distress. HEAD: Normocephalic, atraumatic. NECK: Supple. No reproducible paraspinal cervical tenderness. CHEST: Clear to auscultation. No respiratory distress. No reproducible chest tenderness. HEART: Regular rate and rhythm. Normal peripheral pulses. ABDOMEN: Soft, nontender, nondistended. EXTREMITIES: Normal range of motion. No edema. SKIN: Warm, dry, no rash. NEURO: Alert and oriented x3. PSYCH: Normal mood and affect. Course Course Emergency Course: Patient informed of results. EKG improving suspect patient is having pleurisy given the pleural effusion. Recommend twice daily Aleve. We will also start on Protonix. Needs to follow-up with PCP. Vital Signs Vital signs: Vital Signs Pulse Rate 75 05/09/21 14:07 Pulse Rate 72 10/
[2021-05-09 15:39] VITALS: BP 122/80; PULSE 72; RESP 22; O2SAT 96
[2021-05-09 17:12] VITALS: BP 125/75; PULSE 68; RESP 18; O2SAT 97
== END 2021-05-09 16:50 | disposition home or self-care (01) ==
PROVIDERS: Emergency Provider Emergency Medicine; PCP Nurse Practitioner Adult Health
DX: J90 Pleural effusion, not elsewhere classified (principal); I12.9 Hypertensive chronic kidney disease with stage 1 through stage 4 chronic kidney disease, or unspecified chronic kidney disease; N18.4 Chronic kidney disease, stage 4 (severe); I25.10 Atherosclerotic heart disease of native coronary artery without angina pectoris; K21.9 Gastro-esophageal reflux disease without esophagitis; E78.5 Hyperlipidemia, unspecified; E03.9 Hypothyroidism, unspecified; G47.33 Obstructive sleep apnea (adult) (pediatric); Z79.82 Long term (current) use of aspirin; Z95.5 Presence of coronary angioplasty implant and graft; Z87.891 Personal history of nicotine dependence; R94.31 Abnormal electrocardiogram [ECG] [EKG]
CPT/HCPCS: 36415; 71046; 71275; 80048; 84484; 85025; 85380; 85610; 85730; 93005; 96374; 99284; A9270; J1885; Q9967

== ENCOUNTER 2025-01-20 14:52 | Outpatient (CLI) | payer MEDICARE, SELFPAY ==
--- OUTSIDE RECORDS SUMMARY | 2025-01-20 14:57 | XMS_ITS | Encounter Summary ---
Author Organization [facility] Address [facility] [place] [address] Care Team Providers Care Telephone Clerks Supervisor Name Role Phone Paloma Hunter MD Primary Care Provider [phone] Encounter Details Date Type Department Care Team (Late Contact Info) Description 08/02/2024 MyChart Message Enc [address] [address] Paloma Hunter MD [address] [place] [address] [phone] Medications Social History Tobacco Use Types Packs/Day Years Used Date Smoking Tobacco: Former Cigarettes 0.3 4 1 08/16/1970 - 06/15/1975 Smokeless Tobacco: Never Comments:Counseled by Dr Tiera bolivar Alcohol Use Standard Drinks/Week Comments Not Currently 0 (1 standard drink = 0.6 oz pur e alcohol) PHQ-2 Answer Date Recorded Patient Health Questionnaire-2 Score 2 06/23/2024 Comments No Sex and Gender Information Value Date Recorded Sex Assigned at Not on file Legal Sex Female 1:29 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 Gender Identity Not on file Sexual Orientation Not on file documented as of this encounter Plan of Treatment Upcoming Encounters Date Type Department Care Team (Late st Contact Info) Description 12/16/2025 1:00 PM CD[facility] [place] [address] Paloma Hunter MD [facility] [address] [address] documented as of this encounter Visit Diagnoses Not on filedocumented in this encounter Additional Health Concerns Assessment Noted Time PHQ-9 Depression Total Score: 4 06/23/20 24 1:33 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 documented as of this encounter Care Teams Telephone Clerks Supervisor Relationship Specialty Start Date End Date Paloma Hunter MD [address] [place] [id number] PCP - General INTERNAL MEDICINE 06/16/22 documented as of this encounter
--- OUTSIDE RECORDS SUMMARY | 2025-01-20 14:57 | XMS_ITS | Clinical Summary ---
Author Organization [facility] Address [facility] [place] [address] Care Team Providers Care Corporate Accounting Manager Name Role Phone Paloma Hunter MD Primary Care Provider [phone] Allergies Active Allergy Reactions Criticality Noted Date Comments Pneumococcal Vac Polyvalent Nausea Only 020 Medications aspirin EC (ECOTRIN) 81 MG tablet daily. Active acetaminophen CR (TYLENOL 8 HOUR ARTHRITIS PAIN) 650 MG Tab CR 8 hr tabletIndications: Chronic midline low back pain with right-sided sciatica Take 1 tablet (650 mg total) by mouth 3 (three) times daily as needed. 60 tablet 5 08/02/19 25 Active buPROPion SR 200 MG TABLET SR 12 HR 12 hr tabletIndications: Moderate episode of recurrent major depressive disorder (CMS/HCC) Take 200 mg by mouth 2 (two) times a day. 180 tablet 1 08/02/19 25 Active FLUoxetine (PROZAC) 40 MG capsuleIndications :Moderate episode of recurrent major depressive disorder (CMS/HCC),CHIKI (generalized anxiety disorder) TAKE 1 CAPSULE DAILY 30 capsule 01/12/20 25 Active levothyroxine (SYNTHROID) 125 MCG tabletIndications: Acquired hypothyroidism Take 1 tablet (125 mcg total) by mouth every morning. 30 tablet 01/13/20 25 Active losartan (COZAAR) 50 MG tabletIndications: Coronary artery disease involving napaimute coronary artery, unspecified whether angina present, unspecified whether napaimute or transplanted heart,Primary hypertension Take 1 tablet (50 mg total) by mouth daily. 30 tablet 01/13/20 25 Active metoprolol succinate ER (TOPROL-XL) 50 MG 24 hr tabletIndications: Coronary artery disease involving napaimute coronary artery, unspecified whether angina present, unspecified whether napaimute or transplanted heart,Primary hypertension Take 1 tablet (50 mg total) by mouth daily. 30 tablet 01/13/20 25 Active atorvastatin (LIPITOR) 40 MG tabletIndications: Coronary artery disease involving napaimute coronary artery of napaimute heart without angina pectoris Take 1 tablet (40 mg total) by mouth nightly at bedtime. 30 tablet 01/13/20 25 Active atorvastatin (LIPITOR) 40 MG tabletIndications: Coronary artery disease involving napaimute coronary artery of napaimute heart without angina pectoris TAKE 1 TABLET NIGHTLY AT BEDTIME 90 tablet 1 08/02/19 25 025 Discontinued FLUoxetine (PROZAC) 40 MG capsuleIndications :Moderate episode of recurrent major depressive disorder (CMS/HCC),CHIKI (generalized anxiety disorder) Take 1 capsule (40 mg total) by mouth daily. 90 capsule 1 08/02/19 25 025 Discontinued levothyroxine (SYNTHROID) 125 MCG tabletIndications: Acquired hypothyroidism Take 1 tablet (125 mcg total) by mouth every morning. 90 tablet 1 08/02/19 25 025 Discontinued losartan (COZAAR) 50 MG tabletIndications: Coronary artery disease involving napaimute coronary artery, unspecified whether angina present, unspecified whether napaimute or transplanted heart,Primary hypertension Take 1 tablet (50 mg total) by mouth daily. 90 tablet 1 08/02/19 25 025 Discontinued metoprolol succinate ER (TOPROL-XL) 50 MG 24 hr tabletIndications: Coronary artery disease involving napaimute coronary artery, unspecified whether angina present, unspecified whether napaimute or transplanted heart,Primary hypertension Take 1 tablet (50 mg total) by mouth daily. 90 tablet 1 08/02/19 025 Discontinued Active Problems Problem Noted Date Diagnosed Date Stage 3a chronic kidney disease 06/25/2024 Moderate episode of recurrent major depressive d isorder 09/16/2022 Chronic renal impairment 06/20/2022 Coronary artery disease invo lving napaimute coronary artery of napaimute heart without angina pectoris 06/20/2022 Adhesive capsulitis of shoulder 06/20/2022 Generalized atherosclerosis 06/20/2022 Gastroesophageal reflux disease 06/20/2022 Herpes simplex type 1 infection 06/20/2022 Hypersomnia 06/20/2022 Obesity 06/20/2022 Osteoarthritis of acromioclavicular joint 2021 Osteoarthrosis 06/20/2022 Pernicious anemia 06/20/2022 Lumbar radiculopathy 06/20/2022 Spinal stenosis of lumbar region 06/20/2022 History of coronary artery stent placement 05/26 Vitamin D deficiency 09/11/2019 Hyperlipidemia 09/07/2014 Stage 3b chronic kidney disease 09/07/2014 Essential hypertension 01/26/2014 Obstructive sleep apnea 01/26/2014 Atherosclerotic heart diseas e of napaimute coronary artery without angina pectoris 11/20/2008 Hypothyroidism 11/20/2008 Atherosclerotic heart diseas e of napaimute coronary artery without angina pectoris 05/22/2008 Encounters Date Type Department Care Team Description 01/13/2025 Telephone [place] [id number] [place] [address] Paloma Hunter MD Error 01/13/2025 Telephone [place] [id number] [facility] [address] [place] [address] Paloma Hunter MD Medication Information 01/11/2025 Telephone [place] [id number] [facility] [address] [place] [address] Paloma Hunter MD Follow Up Call 12/03/2024 10:30 AM CDT Office Visit [place] [address] [facility] [address] [place] [address] Paloma Hunter MD Medicare Wellness (Patient presents today for their Medicare Annual Wellness Visit.) 12/03/2024 Travel 11/19/2024 Telephone [place] [id number] [facility] [address] [place] [address] Paloma Hunter MD Appointment Request (AWV scheduled) from Last 3 Months Immunizations Immunization Administration Dates Next Due Abrysvo Respiratory Syncytia l Virus (RSV) 0.5 mL, PF 05/29/2023 Arexvy Respiratory Syncytial Virus (RSV, adjuvanted) 0.5 mL, PF 05/08/2023 Dtp (Generic) 08/01/2010 Fluzone High Dose (IIV, triv alent, 0.5mL) 06/23/2024 Fluzone High Dose - >Age 65 (Prefilled Syringe) 05/08/2023,05/01/2022,05/01/2022,2020,04/28/2020 Influenza (Generic) 06/30/2015,04/29/2014,2012 Influenza Adult (Generic) 05/29/2023,,06/23/2019,2017,04/15/2017,05/17/2016,06/29/2015 MODERNA COVID-19 (12+) MRNA, LNP-S, PF, 100 MCG/ 0.5 ML DOSE 09/29/2020,09/08/2020 PFIZER COVID-19 (ORIGINAL FORMULATION, PURPLE CAP) mRNA, LNP-S, PF, 30 MCG/0.3 ML DOSE 09/28/2020 Pneumococcal (Pneumovax 23) 12/15/2013 Shingrix 05/29/2023 Zoster (Zostavax) 42507 Unt/0.65Ml 03/16/2009 Family History Medical History Relation Comments Depression Daughter 1 Diabetes Daughter 1 Stroke Daughter 1 Depression Daughter 2 Mental Health Daughter 2 Relation Status Comments Daughter 1 Daughter 2 Father Mother Other Social History Tobacco Use Types Packs/Day Years Used Date Smoking Tobacco: Former Cigarettes 0.3 4 1 08/16/1970 - 06/15/1975 Passive Smoke Exposure: Current Smokeless Tobacco: Never Tobacco Cessation:Counseling Given: Not Answered Comments:Counseled by Dr Hunter Alcohol Use Standard Drinks/Week Comments Not Currently 0 (1 standard drink = 0.6 oz pur e alcohol) AUDIT-C Answer Date Recorded Q1: How often do you have a drink containing alcohol? Never 12/02/2024 Q2: How many drinks containi ng alcohol do you have on a typical day when you are drinking? Patient does not drink Q3: How often do you have si x or more drinks on one occasion? Never 12/02/2024 PHQ-2 Answer Date Recorded Patient Health Questionnaire-2 Score 2 12/02/2024 Comments No Sex and Gender Information Value Date Recorded Sex Assigned at Not on file Legal Sex Female 1:29 PM RETIREMENT BENEFITS SPECIALIST Gender Identity Not on file Sexual Orientation Not on file Last Filed Vital Signs Vital Sign Reading Time Taken Comments Blood Pressure 133/78 12/03/2024 10:47 AM CDT Pulse 57 12/03/2024 10:47 AM CDT Temperature 36.7 C (98.1 F) 12/03/2024 10:47 AM CDT Respiratory Rate 16 12/03/2024 10:47 AM CDT Oxygen Saturation 96% 12/03/2024 10:47 AM CDT Inhaled Oxygen Concentration - - Weight 63.2 kg (139 lb 6.4 oz) 12/03/2024 10:47 AM CDT Height 160 cm (5' 3) 12/03/2024 10:47 AM CDT Body Mass Index 24.69 12/03/2024 10:47 AM CDT Plan of Treatment Upcoming Encounters Date Type Department Care Team (Late st Contact Info) Description 12/16/2025 1:00 PM CDT Office Visit [facility] - [place] [address] [address] [place] [address] [place] [address] [place] [address] [address] [place] [address] Health Maintenance Due Date Last Done Comments DTaP, Tdap and Td Vaccines (2 - Tdap) 01/22/2025 08/01/2010 Postponed from 08/01/2020 (Future Appointment) Zoster Vaccines (3 of 3) 12/03/2025 05/29/2023, 09/0 07/2008 Postponed from 07/24/2023 (Going to Outside Clinic) Annual Medicare Wellness Visit 12/04/2025 12/03/2024 COVID-19 Vaccine (5 - season) 2049 09/29/2020, 09/28/2020, 09/08/2020, Additional history exists Postponed from 03/16/2024 (Patient Refused) Colorectal Cancer Screening Colonoscopy (10 Years) Discontinued 07/11/2010 Hepatitis C Completed 06/20/2022 Colorectal Cancer Screening FIT-DNA (3 Years) Discontinued 09/30/2022, 09/30/2022 Dexa Scan (General) Completed 10/06/2022 RSV Immunization or 60+ Years Completed 05/29/2023, 05/08/2023 PHQ-2 (Physician Samish) Completed 12/02/2024 Meningococcal B Vaccine Aged Out No l onger eligible based on patient's age to complete this topic Meningococcal Vaccine Aged Out No alexandra kaiser eligible based on patient's age to complete this topic RSV Immunizations Under 20 Months Aged Out No longer eligible based on patient's age to complete this topic Procedures Procedure Name Priority Date/Time Associated Diagnosis Comments BONE DENSITY/DEXA Routine 10/06/2022 12: 00 AM CDT Postmenopausal COLOGUARD (EXACT SCIENCE) Routine 09/30/2022 3:08 AM CDT Colon cancer screening HEPATITIS C ANTIBODY Routine 06/20/2022 10:02 AM RETIREMENT BENEFITS SPECIALIST Establishing care with new doctor, encounter for Routine general medical examination at a health care facility Encounter for hepatitis C screening test for low risk patient COLONOSCOPY GENERIC (SCAN ORDER) 07/11/2010 from Last 3 Months or Most Recently Relevant to Health Maintenance Results * BONE DENSITY/DEXA (10/06/2022 12:00 AM CDT) Anatomical Region Laterality Modality Bone Bone Density 10/06/2022 Paloma Hunter MD DEXA Final Result * COLOGUARD (EXACT SCIENCE) (09/30/2022 3:08 AM CDT) COLOGUARD RESULT Negative Negative EXA [employer] Compliance (CLIA #:[id number]) Comment: NEGATIVE TEST RESULT. A negative Cologuard result indicates a low likelihood that a colorectal cancer (CRC) or advanced adenoma (adenomatous polyps with more advanced pre-malignant features) is present. The chance that a person with a negative Cologuard test has a colorectal cancer is less than 1 in 1500 (negative predictive value >99.9%) or has an advanced adenoma is less than 5.3% (negative predictive value 94.7%). These data are based on a prospective cross-sectional study of 10,000 individuals at average risk for colorectal cancer who were screened with both Cologuard and colonoscopy. (Hannah Mcgee al, N Engl J Med 2014;370(14):3022-0215) The normal value (reference range) for this assay is negative. COLOGUARD RE-SCREENING RECOMMENDATION: Periodic colorectal cancer screening is an important part of preventive healthcare for asymptomatic individuals at average risk for colorectal cancer. Following a negative Cologuard result, the [place] Cancer Society and U.S. Multi-Society Task Force screening guidelines recommend a Cologuard re-screening interval of 3 years. References: [place] [employer] Guideline for Colorectal Cancer Screening: https://www.cancer.org/cancer/kddmw-omvziq-kdmdeu/fkggnbltn-balzcarar-dfdllgr/ac s-rec ommendations.html.; Dylan DK, Ricky TORRES, Milla BenjaminK, Colorectal Cancer Screening: Recommendations for Physicians and Patients from the U.S. Multi-Society Task Force on Colorectal Cancer Screening , Am J Gastroenterology 2017; 112:2610-8408. TEST DESCRIPTION: Composite algorithmic analysis of stool DNA-biomarkers with hemoglobin immunoassay. Quantitative values of individual biomarkers are not reportable and are not associated with individual biomarker result reference ranges. Cologuard is intended for colorectal cancer screening of adults of either sex, 45 years or older, who are at average-risk for colorectal cancer (CRC). Cologuard has been approved for use by the U.S. FDA. The performance of Cologuard was established in a cross sectional study of average-risk adults aged 50-84. Cologuard performance in patients ages 45 to 49 years was estimated by sub-group analysis of near-age groups. Colonoscopies performed for a positive result may find as the most clinically significant lesion: colorectal cancer [4.0%], advanced adenoma (including sessile serrated polyps greater than or equal to 1cm diameter) [20%] or non- advanced adenoma [31%]; or no colorectal neoplasia [45%]. These estimates are derived from a prospective cross-sectional screening study of 10,000 individuals at average risk for colorectal cancer who were screened with both Cologuard and colonoscopy. (Hannah Mcgee al, N Engl J Med 2014;370(14):1120-1551.) Cologuard may produce a false negative or false positive result (no colorectal cancer or precancerous polyp present at colonoscopy follow up). A negative Cologuard test result does not guarantee the absence of CRC or advanced adenoma (pre-cancer). The current Cologuard screening interval is every 3 years. ([place] Cancer Society and U.S. Multi-Society Task Force). Cologuard performance data in a 10,000 patient pivotal study using colonoscopy as the reference method can be accessed at the following location: www.[employer].com/results. Additional description of the Cologuard test process, warnings and precautions can be found at www.cologuard.com. STOOL STOOL SPECIMEN / Unknown 09/30/2022 3:08 AM CDT 10/01/2022 7:10 PM CDT us Paloma Hunter MD BODY FLUIDS AND STOOLS ORDERABLE S Final Result Performing Organization Address [facility] Co de Phone Number [employer] ([address] [facility]) [address] [facility] [address], [employer] (CLIA #:[id number]) [address] [place] [address] * HEPATITIS C ANTIBODY (06/20/2022 10:02 AM RETIREMENT BENEFITS SPECIALIST) HEPATITIS C AB NON-REACTI VE NON-REACT KHANH 06/21/2022 2:47 PM RETIREMENT BENEFITS SPECIALIST [facility] Comment: ANTIBODIES TO HCV NOT DETECTED. DOES NOT EXCLUDE THE POSSIBILITY OF EXPOSURE TO HCV. 06/20/2022 10:0 2 AM RETIREMENT BENEFITS SPECIALIST us Paloma Hunter MD LABORATORY Final Result Performing Organization Address [facility] Co de Phone Number [facility] [address] [place] [address], [phone] * COLONOSCOPY GENERIC (07/11/2010) 07/11/2010 [facility] Scanned SCANNING Final Resu lt from Last 3 Months or Most Recently Relevant to Health Maintenance Insurance MEDICARE [facility] Care Teams Corporate Accounting Manager Relationship Specialty Start Date End Date Paloma Hunter MD [address] [facility] [address] [place] [address] PCP - General INTERNAL MEDICINE 06/16/22
--- OUTSIDE RECORDS SUMMARY | 2025-01-20 14:57 | XMS_ITS | Referral Summary ---
Author Organization [facility] [place] [address] Address [address] [place] [address] Care Team Providers Care Church Official Name Role Phone Paloma Hunter MD Primary Care Provider [phone] Allergies Active Allergy Reactions Criticality Noted Date Comments Other Nausea only Low 09/11/2019 Medications atorvastatin (LIPITOR) 20 mg tablet 1 Active FLUoxetine (PROzac) 40 mg capsule 1 Active aspirin 81 mg enteric coated tablet daily 4 Active buPROPion SR (WELLBUTRIN SR) 200 mg 12 hr tablet bupropion HCl SR 200 mg tablet,12 hr sustained-rele ase 4 Active metoprolol XL (TOPROL-XL) 50 mg extended release tablet 4 Active levothyroxine (SYNTHROID) 125 mcg tablet 2 Active acetaminophen ER (TYLENOL) 650 mg 8 hr tablet Take 1 tablet (650 mg total) by mouth 3 (three) times a day as needed 3 Active Active Problems Problem Noted Date Diagnosed Date Chest pain on breathing 05/26/2021 History of coronary artery stent placement 05/26 Acute idiopathic pericarditis 05/26/2021 Social History Tobacco Use Types Packs/Day Years Used Date Smoking Tobacco: Former Cigarettes 0.5 4 Smokeless Tobacco: Never Tobacco Cessation:Counseling Given: Not Answered AUDIT-C Answer Date Recorded Q1: How often do you have a drink containing alc ohol? Never 04/22/2021 Average Number of Drinks Not on file 021 Frequency of Binge Drinking Not on file 02/2021 Personal Safety Answer Date Recorded Getting School Help Needed Not on file 07/16 Comments Unknown Sex and Gender Information Value Date Recorded Sex Assigned at Not on file Legal Sex Female 3:54 PM ELECTROPLATER AUTOMATIC Gender Identity Female 06/03/2021 9:08 AM ELECTROPLATER AUTOMATIC Sexual Orientation Not on file Last Filed Vital Signs Vital Sign Reading Time Taken Comments Blood Pressure 110/70 12/27/2023 1:28 PM CDT Pulse 62 12/27/2023 1:28 PM CDT Temperature - - Respiratory Rate - - Oxygen Saturation 96% 12/27/2023 1:28 PM CDT Inhaled Oxygen Concentration - - Weight 63.5 kg (140 lb) 12/27/2023 1:28 PM CDT Height 160 cm (5' 3) 12/27/2023 1:28 PM CDT Body Mass Index 24.8 12/27/2023 1:28 PM CDT Plan of Treatment Not on file Insurance MEDICARE COMMERCIAL GENERIC COMMERCIAL GENERIC MEDICARE Care Teams Church Official Relationship Specialty Start Date End Date Paloma Hunter MD [address] [place] [address] PCP - General Internal Medicine 06/19/23
--- OUTSIDE RECORDS SUMMARY | 2025-01-20 14:57 | XMS_ITS | Clinical Summary ---
Author Organization [facility] [place] [address] Address [address] [place] [address] Care Team Providers Care Investor Relations Coordinator Name Role Phone Paloma Hunter MD Primary Care Provider [phone] Allergies Active Allergy Reactions Criticality Noted Date [...] stent placement 05/26 Acute idiopathic pericarditis 05/26/2021 Surgical History Surgery Date Site/Laterality Comments TONSILECTOMY, ADENOIDECTOMY, BILATERAL MYRINGOTOMY AND TUBES CHOLECYSTECTOMY TOTAL SHOULDER ARTHROPLASTY CORONARY ANGIOPLASTY 07/16/2008 - 07/15/2009 TUBAL LIGATION 1987 Medical History Medical History Date Comments Hypertension Thyroid disease Hx of gallstones H/O diverticulitis of colon Hyperlipidemia Coronary artery disease Pericarditis 03/25/2021 GERD (gastroesophageal reflux disease) 1994 Arthritis 1989 Osteoporosis 2000 Depression 1987 Chronic kidney disease 2014 Sleep apnea 2014 Migraines Blindness Social History Tobacco Use Types Packs/Day Years [...] on file Legal Sex Female 3:54 PM LEGAL BILLER Gender Identity Female 06/03/2021 9:08 AM LEGAL BILLER Sexual Orientation Not on file Obstetrics History Last Filed Vital Signs Vital Sign Reading [...] 12/27/2023 1:28 PM CDT Plan of Treatment Health Maintenance Due Date Last Done Comments Depression Screening 1948 Fall Risk Assessment 1948 Hepatitis C Screening 1948 Hepatitis B Screening 1966 Well Visit 65+ 2013 Pneumococcal vaccine 65+ (2 of 2 - PCV) 12/15/2014 12/15/2013 DTaP/Tdap/Td Vaccine (2 - Tdap) 08/01/2020 1 Zoster Vaccine (3 of 3) 07/24/2023 05/29/2023, 03/16 Covid-19 Vaccine (5 - 2023-2 5 season) 2024 09/29/2020, 09/28/2020, 09/08/2020, Additional history exists Osteoporosis Screening-Bone Density Scan 10/06/2024 10/06/2022 Influenza Vaccine (Season Ended) 2025 05/29/2023, 04/28/2020, 06/23/2019, Additional history exists Insurance MEDICARE COMMERCIAL GENERIC COMMERCIAL GENERIC MEDICARE Care Teams Investor Relations Coordinator Relationship Specialty Start Date End Date Paloma Hunter MD [address] [place] [address] PCP - General Internal Medicine 06/19/23
--- OUTSIDE RECORDS SUMMARY | 2025-01-20 14:57 | XMS_ITS | Encounter Summary ---
Author Organization [facility] Address [facility] [place] [address] Care Team Providers Care Chain Maker Hand Name Role Phone Paloma Hunter MD Primary Care Provider [phone] Encounter Details Date Type Department Care Team (Late Contact Info) Description 12/13/2022 Therapy Plan [facility] Physical Therapy [address] [facility] [address] [place], [place] [id number] Anni Mae, [place] [address] Social History Tobacco Use Types Packs/Day Years Used Date Smoking Tobacco: Former Cigarettes 0.3 4 1 08/16/1970 - 06/15/1975 Smokeless Tobacco: Never Comments:Counseled by Dr Tiera bolivar Alcohol Use Standard Drinks/Week Comments Not Currently 0 (1 standard drink = 0.6 oz pur e alcohol) PHQ-2 Answer Date Recorded Patient Health Questionnaire-2 Score 4 09/18/2022 Comments No Sex and Gender Information Value Date Recorded Sex Assigned at Not on file Legal Sex Female 1:29 PM TAPE STRINGER Gender Identity Not on file Sexual Orientation Not on file documented as of this encounter Plan of Treatment Upcoming Encounters Date Type Department Care Team (Late Contact Info) Description 12/16/2025 1:00 PM CDT Office Visit [facility] Multispecialty Care [place] [address] [address] [place] [address] Paloma Hunter MD [address] [place] [address] documented as of this encounter Visit Diagnoses Not on filedocumented in this encounter Additional Health Concerns Assessment Noted Time PHQ-9 Depression Total Score: 11 023 2:55 PM TAPE STRINGER documented as of this encounter Care Teams Chain Maker Hand Relationship Specialty Start Date End Date Paloma Hunter MD [address] [place] [address] PCP - General INTERNAL MEDICINE 06/16/22 documented as of this encounter
--- OUTSIDE RECORDS SUMMARY | 2025-01-20 14:57 | XMS_ITS | Encounter Summary ---
Author Organization [facility] Address [facility] [place] [address] Care Team Providers Care Coremaker Floor Name Role Phone Paloma Hunter MD Primary Care Provider [phone] Encounter Details Date Type Department Care Team (Late Contact Info) Description 06/26/2024 [facility] [address] [address] [place] [address] [facility] Social History Tobacco Use Types Packs/Day Years [...] on file Legal Sex Female 1:29 PM MEDICAL TRANSCRIPTION RADIOLOGY Gender Identity Not on file Sexual Orientation Not on file documented as of this encounter Plan of Treatment Upcoming Encounters Date Type Department Care Team (Late Contact Info) Description 12/16/2025 1:00 PM CDT [facility] [address] [place] [address] Paloma Hunter MD [address] [address] documented as of this encounter Visit Diagnoses Not on filedocumented in this encounter Additional Health Concerns Assessment Noted Time PHQ-9 Depression Total Score: 4 06/23/20 24 1:33 PM MEDICAL TRANSCRIPTION RADIOLOGY documented as of this encounter Care Teams Coremaker Floor Relationship Specialty Start Date End Date Paloma Hunter MD [address] [address] PCP - General INTERNAL MEDICINE 06/16/22 documented as of this encounter
--- OUTSIDE RECORDS SUMMARY | 2025-01-20 14:57 | XMS_ITS | Encounter Summary ---
Author Organization [facility] - [facility] Address [facility] [place] [address] Care Team Providers Care Data Management Name Role Phone Paloma Hunter MD Primary Care Provider [phone] Encounter Details Date Type Department Care Team (Latest Contact Info) Description 10/09/2022 MyChart Message Enc [facility] Medical Group Multispecialty Care - [place] [address] [place] [address] [address] [place] [address] Paloma Hunter MD [address] [facility] [address] [place] [address] Mammogram results Social History Tobacco Use Types Packs/Day [...] on file Legal Sex Female 1:29 PM CUSTOMER SUPPORT AGENT Gender Identity Not on file Sexual Orientation Not on file COVID-19 Exposure Response Date Recorded In the last 10 days, have yo u been in contact with someone who was confirmed or suspected to have Coronavirus/COVID-19? No / Unsure 10/11/2022 2:54 PM CDT documented as of this encounter Plan of Treatment Upcoming Encounters Date Type Department Care Team (Late st Contact Info) Description 12/16/2025 1:00 PM CDT Office Visit [facility] Medical Group Multispecialty Care [place] [address] [address] [place] [address] Paloma Hunter MD [address] [place] [address] [phone] documented as of this encounter Visit Diagnoses Not on filedocumented in this encounter Additional Health Concerns Assessment Noted Time PHQ-9 Depression Total Score: 11 023 2:55 PM CUSTOMER SUPPORT AGENT documented as of this encounter Care Teams Data Management Relationship Specialty Start Date End Date Paloma Hunter MD [address] [place] [address] PCP - General INTERNAL MEDICINE 06/16/22 documented as of this encounter
[2025-01-20 19:37] LABS: Hematocrit 42.8 % (37.0-47.0); Hemoglobin 14.7 g/dL (12.0-15.0); Immature Granulocyte Percent A 0.3 % (0-0.5); Lymphocytes Absolute Auto 2.09 K/mm3 (0.9-3.2); Mean Corpuscular HGB Conc 34.3 g/dl (32-36); Mean Corpuscular Hemoglobin 33.6 pg (26-34); Mean Corpuscular Volume 97.7 fl (80-100); Nucleated Red Blood Cells Absolute Auto 0.000 K/mm3 (0.0-0.012); Nucleated Red Blood Cells Perc 0.0 % (0.0-0.2); Platelet Count Result 258 k/mm3 (150-375); Red Blood Count 4.38 M/mm3 (4.2-5.4); White Blood Count 7.1 K/mm3 (4.5-10.0)
[2025-01-20 19:46] LABS: Alanine Aminotransferase 85 U/L (6-35); Albumin Level 4.1 g/dL (3.5-5.1); Alkaline Phosphatase 104 U/L (38-126); Anion Gap 11 mmol/L (4-12); Aspartate Amino Transferase 110 U/L (14-36); Bilirubin,Total 0.8 mg/dL (0.2-1.3); Blood Urea Nitrogen 18 mg/dL (7-17); Calcium 9.4 mg/dL (8.4-10.2); Carbon Dioxide 23 mmol/L (22-30); Chloride 107 mmol/L (98-107); Cholesterol 117 mg/dL (0-200); Estimated Glomerular Filt Rate 39; Glucose 99 mg/dL (65-110); HDL Direct 46 mg/dL; Magnesium 1.9 mg/dL (1.6-2.3); Potassium 4.4 mmol/L (3.4-5.0); Sodium 141 mmol/L (137-145); Total Protein 7.2 g/dL (6.3-8.2); Triglycerides 137 mg/dL (<150)
[2025-01-20 20:15] LABS: Thyroid Stimulating Hormone 0.462 uIU/mL (0.465-4.680)
== END 2025-01-20 14:53 | disposition home or self-care (01) ==
LOC: ANHBWCLAB 14:54
PROVIDERS: PCP Nurse Practitioner Adult Health; Visit Provider Nurse Practitioner Adult Health
DX: I10 Essential (primary) hypertension (principal)
CPT/HCPCS: 36415; 80053; 80061; 83735; 84443; 85025

== ENCOUNTER 2025-02-04 09:46 | Outpatient (CLI) | payer MEDICARE, SELFPAY ==
--- NOTE | ~2025-02-04 | US_ITS ---
US abdomen limited INDICATION: Elevated liver function tests PROCEDURE: Realtime right upper abdominal ultrasound. COMPARISON: No prior studies for comparison. FINDINGS: The pancreas is normal without focal mass or pancreatic ductal dilation. Liver echotexture is increased, consistent with fatty infiltration. There is normal directional flow in the portal ve in. Gallbladder is surgically absent. Common bile duct measures 5 mm. No sonographic Todd's sign. IMPRESSION: 1: Fatty infiltration of the liver. Reviewed, dictated and finalized at location A.
== END 2025-02-04 09:47 | disposition home or self-care (01) ==
LOC: GOSHIMG 09:47
PROVIDERS: PCP Nurse Practitioner Adult Health; Visit Provider Nurse Practitioner Adult Health
DX: R74.8 Abnormal levels of other serum enzymes (principal); K76.0 Fatty (change of) liver, not elsewhere classified
CPT/HCPCS: 76705

== ENCOUNTER 2025-04-30 10:17 | Outpatient (CLI) | payer MEDICARE, SELFPAY ==
--- NOTE | ~2025-04-30 | XR_ITS ---
EXAMINATION: XR chest 2V, 04/30/2025 10:27 CDT HISTORY: chronic sob, shakiness, weight loss COMPARISON: No comparisons available. Technique: 2 views obtained. Findings: The lungs are clear, no effusion. No pneumothorax. Heart is normal size. Mediastinal and hilar contours are within normal limits. Bony thorax no acute abnormality. Impression: No acute cardiopulmonary abnormality. Reviewed, dictated and finalized at location P. Impression: No acute cardiopulmonary abnormality.
--- OUTSIDE RECORDS SUMMARY | 2025-04-30 11:48 | XMS_ITS | Encounter Summary ---
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 Gender Identity Not on file Sexual Orientation Not on file documented as of this encounter Plan of Treatment Upcoming Encounters Date Type Department Care Team (Late st Contact Info) Description 12/16/2025 1:00 PM CDT [facility] [address] [place] [address] Paloma Hunter MD [facility] [address] [address] documented as of this encounter Visit Diagnoses Not on filedocumented in this encounter Additional Health Concerns Assessment Noted Time PHQ-9 Depression Total Score: 4 06/23/20 24 1:33 PM BOILER TESTING TECHNICIAN documented as of this encounter Care Teams Apple Picker Relationship Specialty Start Date End Date Paloma Hunter MD [address] [place] [address] PCP - General INTERNAL MEDICINE 06/16/22 documented as of this encounter
--- OUTSIDE RECORDS SUMMARY | 2025-04-30 11:48 | XMS_ITS | Encounter Summary ---
Author Organization [facility] - [facility] Address [facility] [place] [address] Care Team Providers Care Wood Repatcher Name Role Phone Paloma Hunter MD Primary Care Provider [phone] Encounter Details Date Type Department Care Team (Latest Contact Info) Description 10/09/2022 MyChart Message Enc [facility] Medical Group Multispecialty Care - [place] [address] [place] [address] [address] [place] [address] Paloma Hunter MD [address] [facility] [address] [place] [address] Mammogram results Social History Tobacco [...] on file Legal Sex Female 1:29 PM STOCKROOM CLERK Gender Identity Not on file Sexual Orientation [...] Description 12/16/2025 1:00 PM CDT Office Visit [facility] Medical Group Multispecialty Care - [place] [address] [address] [place] [address] Paloma Hunter MD [address] [place] [phone] documented as of this encounter Visit Diagnoses Not on filedocumented in this encounter Additional Health Concerns Assessment Noted Time PHQ-9 Depression Total Score: 11 023 2:55 PM STOCKROOM CLERK documented as of this encounter Care Teams Wood Repatcher Relationship Specialty Start Date End Date Paloma Hunter MD [address] [place] [address] PCP - General INTERNAL MEDICINE 06/16/22 documented as of this encounter
--- OUTSIDE RECORDS SUMMARY | 2025-04-30 11:48 | XMS_ITS | Clinical Summary ---
Author Organization [facility] Address [facility] [place] [address] Care Team Providers Care Executive Meeting Manager Name Role Phone Paloma Hunter MD Primary Care Provider [phone] Allergies Active Allergy Reactions Criticality Noted Date Comments Pneumococcal Vac Polyvalent Nausea Only 020 Medications aspirin EC (ECOTRIN) 81 MG tablet daily. 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 60 tablet 5 5 Active buPROPion SR 200 MG TABLET SR 12 HR 12 hr tabletIndications:M oderate episode of recurrent major depressive disorder (CMS/HCC) Take 200 mg by mouth 2 (two) times a day. 180 tablet 1 5 Active FLUoxetine (PROZAC) 40 MG capsuleIndications: Moderate episode of recurrent major depressive disorder (CMS/HCC),CHIKI (generalized anxiety disorder) TAKE 1 CAPSULE DAILY 30 capsule 5 Active levothyroxine (SYNTHROID) 125 MCG tabletIndications:A cquired hypothyroidism Take 1 tablet (125 mcg total) by mouth every morning. 30 tablet 5 Active losartan (COZAAR) 50 MG tabletIndications:C oronary artery disease involving [place] coronary artery, unspecified whether angina present, unspecified whether [place] or transplanted heart,Primary hypertension Take 1 tablet (50 mg total) by mouth daily. 30 tablet 5 Active metoprolol succinate ER (TOPROL-XL) 50 MG 24 hr tabletIndications:C oronary artery disease involving [place] coronary artery, unspecified whether angina present, unspecified whether [place] or transplanted heart,Primary hypertension Take 1 tablet (50 mg total) by mouth daily. 30 tablet 5 Active atorvastatin (LIPITOR) 40 MG tabletIndications:C oronary artery disease involving [place] coronary artery of [place] heart without angina pectoris Take 1 tablet (40 mg total) by mouth nightly at bedtime. 30 tablet 5 Active Active Problems Problem Noted Date Diagnosed Date Stage 3a chronic kidney disease 06/25/2024 Moderate episode of recurrent major depressive d isorder 09/16/2022 Chronic renal impairment 06/20/2022 Coronary artery disease invo lving [place] coronary artery of [place] heart without angina pectoris 06/20/2022 Adhesive capsulitis [...] apnea 01/26/2014 Atherosclerotic heart diseas e of [place] coronary artery without angina pectoris 11/20/2008 Hypothyroidism 11/20/2008 Atherosclerotic heart diseas e of [place] coronary artery without angina pectoris 05/22/2008 Immunizations Immunization Administration Dates Next Due Abrysvo Respiratory Syncytia l Virus (RSV) 0.5 mL, PF 05/29/2023 Arexvy Respiratory Syncytial Virus (RSV, adjuvanted) 0.5 mL, PF 05/08/2023 Dtp (Generic) 08/01/2010 Fluzone High Dose (IIV, triv alent, 0.5mL) 06/23/2024 Fluzone High Dose - >Age 65 (Prefilled Syringe) 05/08/2023,05/01/2022,04/25/2021,2019 Influenza (Generic) 06/30/2015,04/29/2014,2012 Influenza Adult (Generic) 05/29/2023,,06/23/2019,2017,04/15/2017,05/17/2016,06/29/2015 MODERNA COVID-19 (12+) MRNA, LNP-S, PF, 100 MCG/ 0.5 ML DOSE 09/29/2020,09/08/2020 PFIZER COVID-19 (ORIGINAL FORMULATION, PURPLE CAP) mRNA, LNP-S, PF, 30 MCG/0.3 ML DOSE 09/28/2020 Pneumococcal (Pneumovax 23) 12/15/2013 Shingrix 05/29/2023,05/08/2023 Zoster (Zostavax) 58083 Unt/0.65Ml 03/16/2009 Family History Medical History Relation [...] on file Legal Sex Female 1:29 PM ERP MANAGER Gender Identity Not on file Sexual Orientation [...] Description 12/16/2025 1:00 PM CDT Office Visit [facility] Medical Group Multispecialty Care - [place] [address] [address] [place], [place] [id number] [place] [address] [place] [address] [address] [place] [address] Health Maintenance Due Date Last Done Comments DTaP, Tdap and Td Vaccines (2 - Tdap) 08/01/2020 08/01/2010 Influenza Adult (#1) 2025 06/23/2024, 05/29/2023, 05/08/2023, Additional history exists Zoster Vaccines (3 of 3) 12/03/2025 023, 05/08/2023, 03/16/2009 Postponed from 07/24/2023 (Going to Outside Clinic) Annual Medicare Wellness Visit 12/04/2025 12/03/2024 COVID-19 Vaccine ( season) 2049 09/29/2020, 09/28/2020, 09/08/2020, Additional history exists Postponed from 03/16/2025 (Patient Refused) Colorectal Cancer Screening Colonoscopy (10 Years) Discontinued 07/11/2010 Hepatitis C Completed 06/20/2022 Colorectal Cancer Screening FIT-DNA (3 Years) Discontinued 09/30/2022, 09/30/2022 Dexa Scan (General) Completed 10/06/2022 RSV Immunization or 60+ Years Completed 05/29/2023, 05/08/2023 PHQ-2 (Physician [place]) Completed 12/02/2024 Hepatitis A Vaccines Aged Out No long er eligible based on patient's age to complete this topic Meningococcal B Vaccine Aged Out No l [...] HEPATITIS C ANTIBODY Routine 06/20/2022 10:02 AM ERP MANAGER Establishing care with new doctor, encounter for [...] AM CDT) COLOGUARD RESULT Negative Negative [facility]A [facility] (CLIA #:[id number]) Comment: NEGATIVE TEST RESULT. A negative Cologuard [...] (Hannah Mcgee al, N Engl J Med 2014;370(14):2789-0269) The normal value (reference range) for this assay is negative. COLOGUARD RE-SCREENING RECOMMENDATION: Periodic colorectal cancer screening is an important part of preventive healthcare for asymptomatic individuals at average risk for colorectal cancer. Following a negative Cologuard result, the [employer] Cancer Society and U.S. Multi-Society Task Force screening guidelines recommend a Cologuard re-screening interval of 3 years. References: [place] [employer] Society Guideline for Colorectal Cancer Screening: https://www.cancer.org/cancer/axmgn-tupvoi-bpibdb/endssskvz-knqmpeimu-tszbkjp/ac s-rec ommendations.html.; Dylan DK, Ricky TORRES, Milla BenjaminK, Colorectal Cancer Screening: Recommendations for Physicians and Patients from the U.S. Multi-Society Task Force on Colorectal Cancer Screening , Am J Gastroenterology 2017; 112:5047-7966. TEST DESCRIPTION: Composite algorithmic analysis of stool [...] screened with both Cologuard and colonoscopy. (Hannah Hoyt, N Engl J Med 2014;370(14):6700-1106.) Cologuard may produce a false negative or false positive result (no colorectal cancer or precancerous polyp present at colonoscopy follow up). A negative Cologuard test result does not guarantee the absence of CRC or advanced adenoma (pre-cancer). The current Cologuard screening interval is every 3 years. ([employer] Cancer Society and U.S. Multi-Society Task Force). Cologuard performance data in a 10,000 patient pivotal study using colonoscopy as the reference method can be accessed at the following location: www.[employer].Lumetrics/results. Additional description of the Cologuard test process, warnings and precautions can be found at www.cologuard.com. STOOL STOOL SPECIMEN / Unknown 09/30/2022 3:08 AM CDT 10/01/2022 7:10 PM CDT us Paloma Hunter MD BODY FLUIDS AND STOOLS ORDERABLE S Final Result Performing Organization Address City/[facility] Co de Phone Number [employer] ([facility]) [address] [place] [address], [employer] (CLIA #:[id number]) [address] [place] [address] * HEPATITIS C ANTIBODY (06/20/2022 10:02 AM ERP MANAGER) HEPATITIS C AB NON-REACTI VE NON-REACT KHANH 06/21/2022 2:47 PM ERP MANAGER [facility] Comment: ANTIBODIES TO HCV NOT DETECTED. DOES NOT EXCLUDE THE POSSIBILITY OF EXPOSURE TO HCV. 06/20/2022 10:0 2 AM ERP MANAGER us Paloma Hunter MD LABORATORY Final Result Performing Organization Address City/[facility] Co de Phone Number [facility] [address] [place] [address], [phone] * COLONOSCOPY GENERIC (07/11/2010) 07/11/2010 [facility] Scanned SCANNING Final Resu lt from Last 3 Months or Most Recently Relevant to Health Maintenance Insurance MEDICARE [facility] GENERIC - COMMERCIAL Care Teams Executive Meeting Manager Relationship Specialty Start Date End Date Paloma Hunter MD [address] [facility] [address] [place] [address] PCP - General INTERNAL MEDICINE 06/16/22
--- OUTSIDE RECORDS SUMMARY | 2025-04-30 11:48 | XMS_ITS | Clinical Summary ---
Author Organization [facility] [address] Address [address] [place] [address] Care Team Providers Care Inventory Associate And Driver Name Role Phone Paloma Hunter MD Primary Care Provider [phone] Allergies Active Allergy Reactions Criticality Noted Date [...] disease Pericarditis 03/25/2021 GERD (gastroesophageal reflux disease) 1995 Arthritis 1990 Osteoporosis 2000 Depression 1987 Chronic kidney disease 2015 Sleep apnea 2014 Migraines Blindness Social History [...] on file Legal Sex Female 3:54 PM LOST CHARGE CARD CLERK Gender Identity Female 06/03/2021 9:08 AM LOST CHARGE CARD CLERK Sexual Orientation Not on file Obstetrics History [...] Vaccine (3 of 3) 07/24/2023 05/29/2023, 03/16 Osteoporosis Screening-Bone Density Scan 10/06/2024 10/06/2022 Covid-19 Vaccine (5 - 2024-2 6 season) 2025 09/29/2020, 09/28/2020, 09/08/2020, Additional history exists Influenza Vaccine (#1) 2025 , 04/28/2020, 06/23/2019, Additional history exists Insurance MEDICARE COMMERCIAL GENERIC COMMERCIAL GENERIC MEDICARE Care Teams Inventory Associate And Driver Relationship Specialty Start Date End Date Paloma Hunter MD [address] [place] [address] PCP - General Internal Medicine 06/19/23
--- OUTSIDE RECORDS SUMMARY | 2025-04-30 11:48 | XMS_ITS | Encounter Summary ---
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 Gender Identity Not on file Sexual Orientation Not on file documented as of this encounter Plan of Treatment Upcoming Encounters Date Type Department Care Team (Late Contact Info) Description 12/16/2025 1:00 PM CDT [facility] [address] [place] [address] Paloma Hunter MD [address] [address] documented as of this encounter Visit Diagnoses Not on filedocumented in this encounter Additional Health Concerns Assessment Noted Time PHQ-9 Depression Total Score: 4 06/23/20 24 1:33 PM MECHANICAL DRAWING TEACHER documented as of this encounter Care Teams Power Plant Operations Manager Relationship Specialty Start Date End Date Paloma Hunter MD [address] [address] PCP - General INTERNAL MEDICINE 06/16/22 documented as of this encounter
--- OUTSIDE RECORDS SUMMARY | 2025-04-30 11:48 | XMS_ITS | Clinical Summary ---
Author Organization [facility] Address [address] [place] [address] Phone Care Team Providers Care Title Clerk Name Role Phone Jacquelineale Norma SERGIO Primary Care Provider [phone] Allergies Active Allergy Reactions Criticality Noted Date Comments Pneumococcal Vac Polyvalent Nausea Only 020 Medications aspirin (ASPIR-LOW) 81 MG EC tablet 4 Active metoprolol succinate XL (TOPROL XL) 50 MG 24 hr tablet 4 Active losartan (COZAAR) 50 MG tablet half daily 0 4 Active FLUoxetine (PROzac) 40 MG capsule 4 Active buPROPion SR (WELLBUTRIN SR) 200 MG 12 hr tablet 1 bid 4 Active ergocalciferol (VITAMIN D-2) 49488 units capsule 1 weekly 4 Active losartan (COZAAR) 50 MG tablet losartan 50 mg tablet TAKE 1 TABLET DAILY Active atorvastatin (LIPITOR) 20 MG tablet atorvastatin 20 mg tablet TAKE 1 TABLET DAILY Active levothyroxine (SYNTHROID, LEVOTHROID) 125 MCG tablet levothyroxine 125 mcg tablet TAKE 1 TABLET DAILY Active calcium carbonate (TUMS) 500 MG chewable tablet Chew 500 mg 2 (two) times a day before meals Active Active Problems Problem Noted Date Diagnosed Date Vitamin D deficiency 09/11/2019 Stage 3b chronic kidney disease 09/07/2014 Hyperlipidemia 09/07/2014 Essential (primary) hypertension 01/26/2014 Pain in joint 01/26/2014 Obstructive sleep apnea 01/26/2014 Resolved Problems Problem Noted Date Diagnosed Date Resolved Date Abnormal result of liver function study 08/21/2018 09/24/2020 Immunizations Immunization Administration Dates Next Due DTP 08/01/2010 Influenza Split High Dose Pr eservative Free IM 04/28/2020,06/23/2019,04/23/2018,05/17,06/29/2015 Influenza TIV (IM) 06/30/2015,04/29/2014, 013 Influenza, Injectable, Quadrivalent 06/23/2019,1 Influenza, Injectable, Quadr ivalent, Preservative Free 05/17/2016 Moderna Sars-cov-2 Vaccination 09/08/2020 Pneumococcal Polysaccharide 12/15/2013 Zoster 03/16/2009 Family History Medical History Relation Comments Family history unknown Relative Relation Status Comments Relative Social History Tobacco Use Types Packs/Day Years Used Date Smoking Tobacco: Former Smokeless Tobacco: Never Alcohol Use Standard Drinks/Week Comments Not Currently 0 (1 standard drink = 0.6 oz pur e alcohol) Comments Unknown Sex and Gender Information Value Date Recorded Sex Assigned at Not on file Legal Sex Female 7:16 AM [facility] Gender Identity Not on file Sexual Orientation Not on file Last Filed Vital Signs Vital Sign Reading Time Taken Comments Blood Pressure 118/70 03/31/2020 10:10 AM CDT Pulse 84 03/31/2020 10:10 AM CDT Temperature 36 C (96.8 F) 03/31/2020 10:10 AM CDT Respiratory Rate - - Oxygen Saturation - - Inhaled Oxygen Concentration - - Weight 73.5 kg (162 lb) 03/31/2020 10:10 AM CDT Height 152.4 cm (5') 03/31/2020 10:10 AM CDT Body Mass Index 31.64 03/31/2020 10:10 AM CDT Plan of Treatment Health Maintenance Due Date Last Done Comments Pneumococcal PPSV23/PCV13 65 + Years / Low and Medium Risk (2 of 3 - PCV) 12/15/2014 12/15/2013 COVID-19 Vaccine (2 - 2024-2 6 season) 2025 09/08/2020 Influenza Vaccine (#1) 2025 6, 06/30/2015, 04/29/2014, Additional history exists Insurance MEDICARE [facility] Care Teams Title Clerk Relationship Specialty Start Date End Date Norma Alamo NP [facility] [place] [phone] PCP - General Internal Medicine 03/19/19
--- OUTSIDE RECORDS SUMMARY | 2025-04-30 11:48 | XMS_ITS | Encounter Summary ---
Author Organization [facility] Address [facility] [place] [address] Care Team Providers Care Banquet Food Server Name Role Phone Paloma Hunter MD Primary Care Provider [phone] Encounter Details Date Type Department Care Team (Late Contact Info) Description 12/13/2022 Therapy Plan [facility] Physical Therapy [address] [facility] [address] [place], [place] [id number] Anni Mae, [place] [address] Social History Tobacco Use Types Packs/Day Years [...] on file Legal Sex Female 1:29 PM STIPPLER Gender Identity Not on file Sexual Orientation Not on file documented as of this encounter Plan of Treatment Upcoming Encounters Date Type Department Care Team (Late Contact Info) Description 12/16/2025 1:00 PM CDT Office Visit [facility] Medical Group Multispecialty Care - [place] [address] [address] [place] [address] Paloma Hunter MD [address] [place] [address] documented as of this encounter Visit Diagnoses Not on filedocumented in this encounter Additional Health Concerns Assessment Noted Time PHQ-9 Depression Total Score: 11 023 2:55 PM STIPPLER documented as of this encounter Care Teams Banquet Food Server Relationship Specialty Start Date End Date Paloma Hunter MD [address] [place] [address] PCP - General INTERNAL MEDICINE 06/16/22 documented as of this encounter
[2025-04-30 19:26] LABS: Add Urine Microscopic? YES; Appearance Urine Clear (Clear); Glucose Urine UA Negative (Negative); Leukocyte Esterase Ur Trace LEU/UL (Negative); Nitrate Urine Negative (Negative); Specific Grav Ur 1.019 (1.001-1.035)
[2025-04-30 19:38] LABS: Free T4 Free Thyroxine 1.62 ng/dL (0.78-2.19)
[2025-04-30 19:41] LABS: Hematocrit 48.3 % (37.0-47.0); Hemoglobin 15.8 g/dL (12.0-15.0); Immature Granulocyte Percent A 0.4 % (0-0.5); Lymphocytes Absolute Auto 2.41 K/mm3 (0.9-3.2); Mean Corpuscular HGB Conc 32.7 g/dl (32-36); Mean Corpuscular Hemoglobin 33.4 pg (26-34); Mean Corpuscular Volume 102.1 fl (80-100); Nucleated Red Blood Cells Absolute Auto 0.000 K/mm3 (0.0-0.012); Nucleated Red Blood Cells Perc 0.0 % (0.0-0.2); Platelet Count Result 294 k/mm3 (150-375); Red Blood Count 4.73 M/mm3 (4.2-5.4); White Blood Count 8.1 K/mm3 (4.5-10.0)
[2025-04-30 19:43] LABS: Alanine Aminotransferase 110 U/L (6-35); Albumin Level 4.3 g/dL (3.5-5.1); Alkaline Phosphatase 101 U/L (38-126); Anion Gap 12 mmol/L (4-12); Aspartate Amino Transferase 146 U/L (14-36); Bilirubin,Total 0.8 mg/dL (0.2-1.3); Blood Urea Nitrogen 23 mg/dL (7-17); Calcium 9.3 mg/dL (8.4-10.2); Carbon Dioxide 25 mmol/L (22-30); Chloride 103 mmol/L (98-107); Estimated Glomerular Filt Rate 35; Glucose 97 mg/dL (65-110); Potassium 4.4 mmol/L (3.4-5.0); Sodium 140 mmol/L (137-145); Total Protein 7.8 g/dL (6.3-8.2)
[2025-04-30 20:21] LABS: Thyroid Stimulating Hormone 1.900 uIU/mL (0.465-4.680)
== END 2025-04-30 10:18 | disposition home or self-care (01) ==
PROVIDERS: PCP Nurse Practitioner Adult Health; Visit Provider Nurse Practitioner Adult Health
DX: R53.1 Weakness (principal); I10 Essential (primary) hypertension; E03.9 Hypothyroidism, unspecified; R63.4 Abnormal weight loss; R74.8 Abnormal levels of other serum enzymes
CPT/HCPCS: 36415; 71046; 80048; 80076; 81001; 84439; 84443; 85025; 87077; 87086; 87186

== ENCOUNTER 2025-05-08 16:46 | Outpatient (CLI) | payer MEDICARE, SELFPAY ==
--- NOTE | ~2025-05-08 | CT_ITS ---
EXAMINATION: CT abdomen wo con DATE: 05/08/2025 17:02 INDICATION: Abnormal levels of other serum enzymes. TECHNIQUE: Computed tomography (CT) of the abdomen was performed without intravenous contrast. Automated exposure control and iterative reconstruction technique were employed. The dose-length product was 151.96 mGy-cm. COMPARISON: None. FINDINGS: The visualized portions of the lung bases demonstrate mild atelectasis. No pleural effusion. The heart size is normal. No pericardial effusion. There is a small sliding hiatal hernia. The liver and spleen are normal. There are changes of cholecystectomy. The pancreas, adrenal glands, and kidneys are normal. There is no urolithiasis. There are no dilated loops of bowel. There are no pathologically enlarged lymph nodes. There is no free intraperitoneal fluid. There is severe thoracic and lumbar spondylosis. Lumbar levoscoliosis is noted. IMPRESSION: 1. Small sliding hiatal hernia. Reviewed, dictated and finalized at location E.
--- OUTSIDE RECORDS SUMMARY | 2025-05-08 16:49 | XMS_ITS | Encounter Summary ---
Author Organization [facility] Address [facility] [place] [address] Care Team Providers Care Dietetic Assistant Name Role Phone Paloma Hunter MD Primary Care Provider [phone] Encounter Details Date Type Department Care Team (Late Contact Info) Description 12/13/[address] 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 Gender Identity Not on file Sexual Orientation Not on file documented as of this encounter Plan of Treatment Upcoming Encounters Date Type Department Care Team (Late Contact Info) Description 12/16/2025 1:00 PM CDT Office Visit [facility] Medical Group Multispecialty Care - [place] [address] [address] [place] [address] Paloma Hunter MD [address] [place] [address] documented as of this encounter Visit Diagnoses Not on filedocumented in this encounter Additional Health Concerns Assessment Noted Time PHQ-9 Depression Total Score: 11 023 2:55 PM FEATHER MIXER documented as of this encounter Care Teams Dietetic Assistant Relationship Specialty Start Date End Date Paloma Hunter MD [address] [place] [address] PCP - General INTERNAL MEDICINE 06/16/22 documented as of this encounter
--- OUTSIDE RECORDS SUMMARY | 2025-05-08 16:49 | XMS_ITS | Clinical Summary ---
Author Organization [facility] [address] Address [address] [place] [address] Care Team Providers Care Ironmolder Name Role Phone Paloma Hunter MD Primary Care Provider [phone] Allergies Active Allergy Reactions Criticality Noted Date [...] on file Legal Sex Female 3:54 PM PLUMBER APPRENTICE Gender Identity Female 06/03/2021 9:08 AM PLUMBER APPRENTICE Sexual Orientation Not on file Obstetrics History [...] 04/28/2020, 06/23/2019, Additional history exists Insurance MEDICARE [facility] Address: [address] [address] COMMERCIAL GENERIC COMMERCIAL GENERIC MEDICARE Care Teams Ironmolder Relationship Specialty Start Date End Date Paloma Hunter MD [address] [place] [address] PCP - General Internal Medicine 06/19/23
--- OUTSIDE RECORDS SUMMARY | 2025-05-08 16:49 | XMS_ITS | Encounter Summary ---
Author Organization [facility] Address [facility] [place] [address] Care Team Providers Care River Crossing Supervisor Name Role Phone Paloma Hunter MD Primary Care Provider [phone] Encounter Details Date Type Department Care Team (Late Contact Info) Description 06/26/2024 eriQoo Message [facility] [address] [address] [place] [address] [facility] results Social History Tobacco Use [...] on file Legal Sex Female 1:29 PM DUPLICATOR PUNCH SET UP OPERATOR Gender Identity Not on file Sexual Orientation Not on file documented as of this encounter Plan of Treatment Upcoming Encounters Date Type Department Care Team (Late Contact Info) Description 12/16/2025 1:00 PM CDT [facility] [address] [place] [address] Paloma Hunter MD [address] [address] documented as of this encounter Visit Diagnoses Not on filedocumented in this encounter Additional Health Concerns Assessment Noted Time PHQ-9 Depression Total Score: 4 06/23/20 24 1:33 PM DUPLICATOR PUNCH SET UP OPERATOR documented as of this encounter Care Teams [place] Supervisor Relationship Specialty Start Date End Date Paloma Hunter MD [address] [address] PCP - General INTERNAL MEDICINE 06/16/22 documented as of this encounter
--- OUTSIDE RECORDS SUMMARY | 2025-05-08 16:49 | XMS_ITS | Encounter Summary ---
Author Organization [facility] Address [facility] [place] [address] Care Team Providers Care Airplane Tester Name Role Phone Paloma Hunter MD Primary Care Provider [phone] Encounter Details Date Type Department Care Team (Latest Contact Info) Description 10/09/2022 MyChart Message Enc [facility] - [place] [address] [place] [address] [address] [place] [address] Paloma Hunter MD [address] [facility] [address] [place] [address] Mammogram results Social History Tobacco [...] on file Legal Sex Female 1:29 PM SUSPENDER MAKER Gender Identity Not on file Sexual Orientation [...] Description 12/16/2025 1:00 PM CDT Office Visit [facility] [place] [address] [address] [place] [address] Paloma Hunter MD [address] [place] [address] [phone] documented as of this encounter Visit Diagnoses Not on filedocumented in this encounter Additional Health Concerns Assessment Noted Time PHQ-9 Depression Total Score: 11 023 2:55 PM SUSPENDER MAKER documented as of this encounter Care Teams Airplane Tester Relationship Specialty Start Date End Date Paloma Hunter MD [address] [place] [address] PCP - General INTERNAL MEDICINE 06/16/22 documented as of this encounter
--- OUTSIDE RECORDS SUMMARY | 2025-05-08 16:49 | XMS_ITS | Patient Health Record ---
Author Organization [facility] Address [address] [place] [address] Care Team Providers Care Oil Well Services Field Supervisor Name Role Phone Bull RAMACHANDRAN, Sue Primary Care Provider Aly Ji Unavailable [phone] Reason For Referral No Information Plan Of Treatment No Information Insurance Providers Payer Name Payer Address Payer Phone Subscriber Number Group Number Insured Name Patient Relationship to Insured Coverage Start Date Coverage End Date [facility] [address] [address] [place] [address] [id number] Anu Carranza Self - patient is the insured MEDICARE SERVICES [address] [address] [place] [address] [id number] Anu Carranza Self - patient is the insured
--- OUTSIDE RECORDS SUMMARY | 2025-05-08 16:49 | XMS_ITS | Clinical Summary ---
Author Organization [facility] Address [address] [place] [address] Phone Care Team Providers Care White Washer Piler Name Role Phone Jacquelineale Norma SERGIO Primary Care Provider [phone] Allergies Active Allergy Reactions Criticality Noted Date [...] 1 bid 4 Active ergocalciferol (VITAMIN D-2) 66302 units capsule 1 weekly 4 Active losartan [...] on file Legal Sex Female 7:16 AM [facility] Gender Identity Not on file Sexual Orientation [...] 06/30/2015, 04/29/2014, Additional history exists Insurance MEDICARE [facility] Care Teams White Washer Piler Relationship Specialty Start Date End Date Norma Alamo NP [facility] [phone] PCP - General Internal Medicine 03/19/19
--- OUTSIDE RECORDS SUMMARY | 2025-05-08 16:49 | XMS_ITS | Encounter Summary ---
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 Gender Identity Not on file Sexual Orientation Not on file documented as of this encounter Plan of Treatment Upcoming Encounters Date Type Department Care Team (Late st Contact Info) Description 12/16/2025 1:00 PM CDT [facility] [address] [place] [address] Paloma Hunter MD [facility] [address] documented as of this encounter Visit Diagnoses Not on filedocumented in this encounter Additional Health Concerns Assessment Noted Time PHQ-9 Depression Total Score: 4 06/23/20 24 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
== END 2025-05-08 16:47 | disposition home or self-care (01) ==
LOC: ANHIMG 16:47
PROVIDERS: PCP Nurse Practitioner Adult Health; Visit Provider Nurse Practitioner Adult Health
DX: K44.9 Diaphragmatic hernia without obstruction or gangrene (principal); R74.8 Abnormal levels of other serum enzymes; R63.4 Abnormal weight loss
CPT/HCPCS: 74150